=== PATIENT | male | born 2000 | race Caucasian/White ===

== ENCOUNTER 2021-08-26 01:39 | Emergency (ER) | payer OTHER, SELFPAY ==
[2021-08-26] VITALS (11 sets, daily range): BP systolic 147–174; BP diastolic 89–101; PULSE 117–134; RESP 18–22; TEMP 37.2–37.3; O2SAT 95–99; BMI 33.6
--- NOTE | 2021-08-26 02:01 | HMH.EDGENADL ---
ED Disposition Clinical Impression: COVID-19, Hyperglycemia, Elevated blood pressure reading Disposition: Home, Self-Care Condition on Discharge: Fair Instructions: Essential Hypertension, DI for Hyperglycemia -- Adult, DI for COVID-19 (Suspected or Confirmed ) Additional Instructions: You have been evaluated for elevated blood pressure. This is likely due to stress response, COVID-19. Please restart taking lisinopril daily. It is very important that you establish with a new primary care doctor for hypertension and diabetes management. Follow low-salt diet. Avoid sugar and carbohydrates. Exercise daily. Return to the emergency department for any new or worsening symptoms. Prescriptions: Lisinopril/Hydrochlorothiazide [Lisinopril-Hctz 20-12.5 mg Tab*] 1 tab PO DAILY #30 tab Transmission Status: Received by [id number] Referrals: Margarita Guerrero APRN [Primary Care Provider] - Time of Disposition: 02:37 - Critical Care Critical Care Time: No Attestation: On 08/26/21, the high probability of a clinically significant, sudden or life threatening deterioration of the following system(s) required my full and direct attention, intervention and personal management. The time I documented below is in addition to time spent performing reported procedures but includes the following listed in this critical care notation. Medical Decision Making - Medical Records Medical records reviewed: Yes: I reviewed the patient's medical records. - Luke Inquiry Pt receiving controlled substance: No Vital Signs: 08/26/21 01:41 08/26/21 02:35 08/26/21 02:45 Temperature 99.1 F Temperature Source Oral Pulse Rate 132 H 134 H Pulse Rate [Apical] 134 H Respiratory Rate 22 Blood Pressure Blood Pressure [Left Arm] 170/96 H Blood Pressure [Right Arm] 174/101 H Blood Pressure Mean Blood Pressure Mean [Left Arm] 120 Blood Pressure Mean [Right Arm] 125 Blood Pressure Source Blood Pressure Source [Left Arm] Automatic Cuff Blood Pressure Source [Right Arm] Manual Cuff/ Doppler Blood Pressure Position Blood Pressure Position [Left Arm] Sitting Blood Pressure Position [Right Arm] Sitting 02 Sat by Pulse Oximetry 97 95 96 Oxygen Delivery Method Room Air 08/26/21 03:00 08/26/21 03:01 08/26/21 03:15 Temperature Temperature Source Pulse Rate 125 H 127 H 123 H Pulse Rate [Apical] Respiratory Rate 18 Blood Pressure 155/89 H 155/89 H Blood Pressure [Left Arm] Blood Pressure [Right Arm] Blood Pressure Mean 111 Blood Pressure Mean [Left Arm] Blood Pressure Mean [Right Arm] Blood Pressure Source Automatic Cuff Blood Pressure Source [Left Arm] Blood Pressure Source [Right Arm] Blood Pressure Position Supine Blood Pressure Position [Left Arm] Blood Pressure Position [Right Arm] 02 Sat by Pulse Oximetry 96 96 96 Oxygen Delivery Method Room Air 08/26/21 03:30 08/26/21 03:35 08/26/21 03:45 Temperature 98.9 F Temperature Source Oral Pulse Rate 117 H 118 H 124 H Pulse Rate [Apical] Respiratory Rate 20 Blood Pressure 154/94 H 154/94 H Blood Pressure [Left Arm] Blood Pressure [Right Arm] Blood Pressure Mean 114 Blood Pressure Mean [Left Arm] Blood Pressure Mean [Right Arm] Blood Pressure Source Automatic Cuff Blood Pressure Source [Left Arm] Blood Pressure Source [Right Arm] Blood Pressure Position Sitting Blood Pressure Position [Left Arm] Blood Pressure Position [Right Arm] 02 Sat by Pulse Oximetry 97 98 Oxygen Delivery Method Room Air 08/26/21 04:00 08/26/21 04:15 Temperature Temperature Source Pulse Rate 118 H 122 H Pulse Rate [Apical] Respiratory Rate Blood Pressure 147/97 H Blood Pressure [Left Arm] Blood Pressure [Right Arm] Blood Pressure Mean 113 Blood Pressure Mean [Left Arm] Blood Pressure Mean [Right Arm] Blood Pressure Source Blood Pressure Source [Left Arm]
[2021-08-26 02:04] LABS: Basophils # 0.2 K/mm3 (0-0.2); Basophils % 3.7 % (0.1-2.0); Eosinophils % 0.4 % (0.1-12.0); Hematocrit 49.7 % (42.0-52.0); Hemoglobin 16.7 g/dL (14.1-18.0); Influenza A, PCR Not Detected (NotDetected); Influenza B, PCR Not Detected (NotDetected); Lymphocytes # 1.1 K/mm3 (0.7-4.5); Lymphocytes % 24.4 % (10-50); Mean Corpuscular HGB Conc 33.5 g/dL (31.8-35.4); Mean Corpuscular Hemoglobin 29.7 pg (27.0-31.2); Mean Corpuscular Volume 88.8 fl (80-94); Mean Platelet Volume 8.7 fl (7.4-10.4); Monocytes # 0.4 K/mm3 (0.1-1.0); Monocytes % 7.9 % (1.7-9.3); Neutrophils # 2.9 K/mm3 (1.8-7.8); Neutrophils % 63.6 % (37.0-80.0); Platelet Count 244 K/mm3 (142-424); Red Cell Distribution Width 12.9 % (11.5-17.5); White Blood Count 4.6 K/mm3 (4.8-10.8)
[2021-08-26 02:16] LABS: Alanine Aminotransferase 165 U/L (12-78); Albumin Level 4.6 g/dl (3.5-5.0); Albumin/Globulin Ratio 1.2 (1.1-1.8); Aspartate Amino Transferase 109 U/L (17-59); Bilirubin,Total 0.8 mg/dl (0.2-1.3); Blood Urea Nitrogen 10 mg/dl (9-20); Calcium 9.1 mg/dl (8.4-10.2); Carbon Dioxide 23 mmol/L (22.0-30.0); Chloride 97 mmol/L (98-107); Creatinine Clearance Estimated 322 mL/min (50-200); Estimated Glomerular Filt Rate 210 ml/min (>60); GFR (African American) 254 ML/MIN (>60); Globulin 3.8 g/dL (1.3-3.2); Sodium 134 mmol/L (136-145); Total Protein,Serum 8.4 g/dl (6.3-8.2)
[2021-08-26 02:19] LABS: Alkaline Phosphatase 78 U/L (38-126); Glucose 451 mg/dl (74-100)
[2021-08-26 02:26] LABS: Coronavirus 19, PCR Detected (NotDetected)
[2021-08-26 02:29] LABS: Microscopic, Urine URINE MICROSCOPIC (MICROSCOPIC)
[2021-08-26 02:31] LABS: VBG Base Excess -4.8 mmol/L (-2.4-2.3); VBG HCO3 21.1 mmol/L (23-30); VBG Oxygen Saturation 82.8 % (50-70); VBG PCO2 40.6 mmol/L (35-51); VBG PH 7.33 mmol/L (7.31-7.41); VBG PO2 49.1 mmol/L (28-40); VBG Total CO2 22.4 mmol/L (23-27)
[2021-08-26 02:32] LABS: Acetone, Serum (Rapid) None Detected (None Detect)
[2021-08-26 02:32] LABS: Appearance,Urine CLEAR (Clear); Bilirubin,Urine Negative (Negative); Blood, Urine Negative (Negative); Color,Urine YELLOW (Yellow); Glucose,Urine (UA) 3+ (Negative); Ketones,Urine Negative (Negative); Leukocyte Esterase,Urine Negative (Negative); Nitrate,Urine Negative (Negative); Protein,Urine Negative (Negative); Specific Gravity, Urine 1.015 (1.005-1.030); Urobilinogen,Urine 0.2 EU/dl (0.2)
[2021-08-26 02:38] LABS: Squamous Epithelial Cell,Urine Occasional #/hpf (0-5)
== END 2021-08-26 04:40 | disposition home or self-care (01) ==
PROVIDERS: Emergency Provider Emergency Medicine; PCP Nurse Practitioner Family
DX: U07.1 COVID-19 (principal); I10 Essential (primary) hypertension; E11.65 Type 2 diabetes mellitus with hyperglycemia
CPT/HCPCS: 80053; 81001; 82009; 82803; 85025; 96365; 96366; 99283; C9803; U0003; U0005

== ENCOUNTER 2022-01-03 14:45 | Emergency (ER) | payer OTHER, SELFPAY ==
[2022-01-03 15:02] VITALS: BP 195/75; PULSE 96; RESP 20; TEMP 36.7; O2SAT 96; BMI 30.4
--- NOTE | 2022-01-03 15:03 | XR_ITS ---
FINAL REPORT CLINICAL HISTORY: sob, nausea, chest tightness, non smoker FINDINGS: Two views of the chest were obtained. The heart size and pulmonary vascularity are within normal limits. The mediastinum is normal. No acute pulmonary abnormality is identified. There is no pneumothorax. The bony thorax is intact. IMPRESSION: No active cardiopulmonary disease. Reviewed, Interpreted and Dictated by Marcus Perez III, MD Transcribed by Joaquin Lugo Authenticated and [facility]
--- NOTE | 2022-01-03 15:03 | HMH.EDUTC ---
[facility] [place] Clinical Impression: Viral syndrome, Elevated blood pressure reading Disposition: Home, Self-Care Condition on Discharge: Good Instructions: DI for Viral Syndrome, Ondansetron, Preventing the Spread of Coronavirus Discharge Instructions Additional Instructions: Drink plenty of fluids. Take tylenol for pain or fever. Take the medications as directed. Follow up with your regular doctor. GO TO THE ER FOR ANY WORSENING SYMPTOMS Quarantine until you know the results of your covid-19 test. Notify your school or workplace of your results and follow their instructions regarding return to work/school. Prescriptions: Ondansetron [Zofran 4mg ODT] 4 mg PO Q8HP PRN #20 tab PRN Reason: Nausea Transmission Status: Received by [facility] Lisinopril/Hydrochlorothiazide [Lisinopril-Hctz 20-12.5 mg Tab*] 1 tab PO DAILY #30 tab Transmission Status: Received by [facility] Referrals: Roxane Lomas APRN [Primary Care Provider] - Forms: Work/School Release Time of Disposition: 17:10 Medical Decision Making - Medical Records Medical records reviewed: No: I reviewed the patient's medical records. - Luke Inquiry Pt receiving controlled substance: No Vital Signs: 01/03/22 15:02 01/03/22 17:25 Temperature 98.0 F 98.0 F Temperature Source Oral Pulse Rate 85 Pulse Rate [Left Radial] 96 H Respiratory Rate 20 17 Blood Pressure 135/80 Blood Pressure [Right Arm] 195/75 H Blood Pressure Mean [Right Arm] 115 02 Sat by Pulse Oximetry 96 - Lab Data Lab Results 01/03/22 15:03: Chlamy pneumoniae PCR Not detected, Adenovirus (PCR) Not detected, B. pertussis DNA (PCR) Not detected, Coronavirus OC43 (PCR) Not detected, Coronavirus HKU1 (PCR) Not detected, Coronavirus 229E (PCR) Not detected, SARS-CoV-2 (PCR) Not detected, Coronavirus NL63 (PCR) Not detected, Human Metapneumovir PCR Not detected, Influenza A (H1) PCR Not detected, Influ A (H1N1/09) PCR Not detected, Influenza A (H3) PCR Not detected, Influenza Type A (PCR) Not detected, Influenza Type B (PCR) Not detected, M. pneumoniae (PCR) Not detected, Parainfluenza 1 (PCR) Not detected, Parainfluenza 2 (PCR) Not detected, Parainfluenza 3 (PCR) Not detected, Parainfluenza 4 (PCR) Not detected, RSV (PCR) Not detected, Entero/Rhino (PCR) Not detected 01/03/22 15:03: Influenza Type A Ag Negative, Influenza Type B Ag Negative Orders (Tests/Meds): ED MEDICATIONS Discontinued Medications Generic Name Dose Route Start Last Admin Trade Name Freq PRN Reason Stop Dose Admin Sodium Chloride 1,000 mls @ 999 mls/hr 01/03/22 16:00 01/03/22 16:02 Sod Chlor 0.9% 1000ml Bag IV 01/03/22 17:00 999 mls/hr .Q1H1M CARMENZA Administration Ondansetron HCl 4 mg 01/03/22 15:39 01/03/22 16:02 Ondansetron 4mg/2ml Vial IV 01/03/22 15:40 4 mg ONCE ONE Administration Ondansetron HCl 4 mg 01/03/22 16:37 01/03/22 16:41 Ondansetron 4mg/2ml Vial IV 01/03/22 16:38 4 mg ONCE ONE Administration [facility] [place] - General Stated complaint: back pain, vomiting, soa Time Seen by Provider: 01/03/22 15:03 - History of Present Illness Provider Complaint: He states that for the past 3 days he has had a cough, chest congestion, n/v/d, body aches and generally feeling bad. - Related Data Previous Rx's Medication Instructions Recorded Lisinopril/Hydrochlorothiazide 1 tab PO DAILY #30 tab 08/26/21 [Lisinopril-Hctz 20-12.5 mg Tab*] Lisinopril/Hydrochlorothiazide 1 tab PO DAILY #30 tab 01/03/22 [Lisinopril-Hctz 20-12.5 mg Tab*] Ondansetron [Zofran 4mg ODT] 4 mg PO Q8HP PRN #20 tab 01/03/22 Allergies Allergy/AdvReac Type Severity Reaction Status Date / Time No Known Allergies Allergy Verified 01/03/22 15:05 [facility] History - Hepatitis A Screen Attestation statement:: This patient has been screened for Hepatitis A risk factors. I have reviewed the patient's past medica
[2022-01-03 15:31] LABS: Adenovirus,PCR Not Detected (NotDetected); Bordetella Pertussis Not Detected (NotDetected); Chlamydophila Pneumoniae, PCR Not Detected (NotDetected); Coronavirus 19, PCR Not Detected (NotDetected); Coronavirus 229E Not Detected (NotDetected); Coronavirus NL63 Not Detected (NotDetected); Coronavirus OC43 Not Detected (NotDetected); Coronovirus HKU1,PCR Not Detected (NotDetected); Human Metapneumovirus Not Detected (NotDetected); Influenza A, PCR Not Detected (NotDetected); Influenza AH1, 2009 Not Detected (NotDetected); Influenza AH1, PCR Not Detected (NotDetected); Influenza AH3,PCR Not Detected (NotDetected); Influenza B, PCR Not Detected (NotDetected); Mycoplasma Pneumoniae, PCR Not Detected (NotDetected); Parainfluenza 1, PCR Not Detected (NotDetected); Parainfluenza 2, PCR Not Detected (NotDetected); Parainfluenza 3, PCR Not Detected (NotDetected); Parainfluenza 4, PCR Not Detected (NotDetected); Respiratory Syncytial Virus Not Detected (NotDetected); Rhinovirus/Enterovirus Not Detected (NotDetected)
[2022-01-03 15:35] LABS: UTC Influenza A Antigen Negative (Negative); UTC Influenza B Antigen Negative (Negative)
[2022-01-03 17:25] VITALS: BP 135/80; PULSE 85; RESP 17; TEMP 36.7
== END 2022-01-03 17:26 | disposition home or self-care (01) ==
PROVIDERS: Emergency Provider Nurse Practitioner Family; PCP Nurse Practitioner Family
DX: B34.9 Viral infection, unspecified (principal); R11.10 Vomiting, unspecified; R06.02 Shortness of breath; M54.9 Dorsalgia, unspecified; Z20.822 Contact with and (suspected) exposure to COVID-19; Z79.4 Long term (current) use of insulin
CPT/HCPCS: 71046; 87581; 87632; 87798; 87804; C9803; J2405; U0003; U0005

== ENCOUNTER 2022-01-04 16:07 | Inpatient (IN) | payer OTHER, SELFPAY ==
[2022-01-04] VITALS (15 sets, daily range): BP systolic 170–202; BP diastolic 98–122; PULSE 127–147; RESP 16–44; TEMP 36.2–37.2; O2SAT 99–100; BMI 28.8
--- NOTE | 2022-01-04 16:08 | ECG_ITS ---
APPROVED REPORT Exam: Resting ECG HR:143 bpm ECG Measurements Heart Rate 143 AXES WY 150 P 62 QRSd 94 QRS 48 QT 265 T -64 QTc 348 Conclusion SINUS TACHYCARDIA, NONSPECIFIC T-WAVE ABNORMALITY ABNORMAL ECG UNCONFIRMED REPORT Electronically signed by : Rico Soto MD 01/05/2022 18:42:36
--- NOTE | 2022-01-04 16:27 | HMH.EDGENADL ---
ED Disposition Clinical Impression: Diabetic ketoacidosis Qualifiers: Diabetes mellitus type: other specified (including RASHEED) Diabetes mellitus complication detail: without coma Qualified Code(s): E13.10 - Other specified diabetes mellitus with ketoacidosis without coma Disposition: Admitted As Inpatient Condition on Discharge: Undetermined Referrals: Roxane Lomas APRN [Primary Care Provider] - - Critical Care Critical Care Time: Yes Attestation: On 01/04/22, the high probability of a clinically significant, sudden or life threatening deterioration of the following system(s) required my full and direct attention, intervention and personal management. The time I documented below is in addition to time spent performing reported procedures but includes the following listed in this critical care notation. Total Critical Care Time: 30 Vital system(s) involved:: Metabolic Failure My critical care processes included: Assessment & monitoring of V/S, Initial and Re-exams, Data Review/Interpretation, Coordinating Care, Medication Orders and management, Documentation Medical Decision Making - Medical Records Medical records reviewed: Yes: I reviewed the patient's medical records. - Luke Inquiry Pt receiving controlled substance: No Vital Signs: 01/04/22 16:10 01/04/22 16:30 01/04/22 17:00 Temperature 97.2 F L Temperature Source Rectal Pulse Rate 140 H 134 H Pulse Rate [Brachial] 142 H Respiratory Rate 44 H 40 H 36 H Blood Pressure 202/113 H 194/104 H Blood Pressure [Right Arm] 193/122 H Blood Pressure Mean 139 129 Blood Pressure Mean [Right Arm] 145 Blood Pressure Source [Right Arm] Automatic Cuff Blood Pressure Position [Right Arm] Sitting 02 Sat by Pulse Oximetry 100 99 100 Oxygen Delivery Method Room Air 01/04/22 17:30 01/04/22 18:00 Temperature Temperature Source Pulse Rate 140 H 143 H Pulse Rate [Brachial] Respiratory Rate 33 H 41 H Blood Pressure 199/109 H 202/115 H Blood Pressure [Right Arm] Blood Pressure Mean 131 144 Blood Pressure Mean [Right Arm] Blood Pressure Source [Right Arm] Blood Pressure Position [Right Arm] 02 Sat by Pulse Oximetry 100 100 Oxygen Delivery Method - Lab Data Lab results reviewed: Yes: I reviewed the patient's lab results. Lab Results 01/04/22 16:23: WBC 17.2 H, RBC 5.73, Hgb 17.8, Hct 52.4 H, MCV 91.5, MCH 31.0, MCHC 33.9, RDW 13.4, Plt Count 432 H, MPV 8.9, Neut % (Auto) 83.7 H, Lymph % (Auto) 8.4 L, Becker % (Auto) 7.1, Eos % (Auto) 0.0 L, Baso % (Auto) 0.7, Neut # (Auto) 14.4 H, Lymph # (Auto) 1.5, Becker # (Auto) 1.2 H, Eos # (Auto) 0.0, Baso # (Auto) 0.1, Total Counted 100, Neutrophils % (Manual) 85 H, Band Neutrophils % 5.0, Lymphocytes % (Manual) 8 L, Monocytes % (Manual) 2, Platelet Estimate Normal, RBC Morphology Normal 01/04/22 16:23: Sodium 126 L, Potassium 4.9, Chloride 96 L, Carbon Dioxide < 5 L*, Anion Gap 29.9 H, BUN 25 H, Creatinine 1.30 H, Estimated GFR 70, Est GFR ( Amer) 84, Glucose 583 H*, Calcium 9.5, Magnesium 3.0 H, Total Bilirubin 1.1, AST 41, ALT 48, Alkaline Phosphatase 126, Troponin I < 0.01, C-Reactive Protein 101.7 H, Total Protein 9.3 H, Albumin 4.5, Globulin 4.8 H, Albumin/Globulin Ratio 0.9 L 01/04/22 16:23: Acetone Level Large 01/04/22 16:28: VBG pH 6.93 L, VBG pCO2 21.5 L, VBG pO2 68.3 H, VBG HCO3 4.5 L, VBG Total CO2 5.1 L, VBG O2 Saturation 89.8 H, VBG Base Excess -27.9 L 01/04/22 16:32: SARS-CoV-2 (PCR) Not detected, Influenza A Untype (PCR) Not detected, Influenza Type B (PCR) Not detected 01/04/22 16:38: Urine Color Yellow, Urine Appearance Cloudy, Urine pH 5.5, Ur Specific [place] 1.025, Urine Protein 2+, Urine Glucose (UA) 2+, Urine Ketones 3+, Urine Blood 3+, Urine Nitrate Negative, Urine Bilirubin 1+ A, Urine Urobilinogen 0.2, Ur Leukocyte Esterase Negative, Urine RBC Tntc, Urine WBC Occasional, Ur Squamous Epith Cells None, Urine Bacteria Trace 01/04/22 17:09: POC Glucose 565 H* Result diagrams:
[2022-01-04 16:39] LABS: Chloride 96 mmol/L (98-107)
[2022-01-04 16:40] LABS: Potassium 4.9 mmoL/L (3.5-5.1); Sodium 126 mmol/L (136-145)
[2022-01-04 16:41] LABS: Basophils # 0.1 K/mm3 (0-0.2); Basophils % 0.7 % (0.1-2.0); Hematocrit 52.4 % (42.0-52.0); Hemoglobin 17.8 g/dL (14.1-18.0); Lymphocytes # 1.5 K/mm3 (0.7-4.5); Lymphocytes % 8.4 % (10-50); Mean Corpuscular HGB Conc 33.9 g/dL (31.8-35.4); Mean Corpuscular Volume 91.5 fl (80-94); Mean Platelet Volume 8.9 fl (7.4-10.4); Monocytes # 1.2 K/mm3 (0.1-1.0); Monocytes % 7.1 % (1.7-9.3); Neutrophils # 14.4 K/mm3 (1.8-7.8); Neutrophils % 83.7 % (37.0-80.0); Platelet Count 432 K/mm3 (142-424); Red Blood Count 5.73 M/mm3 (4.60-6.20); Red Cell Distribution Width 13.4 % (11.5-17.5); White Blood Count 17.2 K/mm3 (4.8-10.8)
[2022-01-04 16:42] LABS: Alanine Aminotransferase 48 U/L (12-78); Aspartate Amino Transferase 41 U/L (17-59); Blood Urea Nitrogen 25 mg/dl (9-20); Estimated Glomerular Filt Rate 70 ml/min (>60); GFR (African American) 84 ML/MIN (>60)
[2022-01-04 16:43] LABS: Albumin Level 4.5 g/dl (3.5-5.0); Albumin/Globulin Ratio 0.9 (1.1-1.8); Alkaline Phosphatase 126 U/L (38-126); Bilirubin,Total 1.1 mg/dl (0.2-1.3); Calcium 9.5 mg/dl (8.4-10.2); Globulin 4.8 g/dL (1.3-3.2); MANUAL DIFFERENTIAL MANUAL DIFFERENTIAL (MANUAL DIFF); Total Protein,Serum 9.3 g/dl (6.3-8.2)
[2022-01-04 16:43] LABS: Microscopic, Urine URINE MICROSCOPIC (MICROSCOPIC)
[2022-01-04 16:48] LABS: Appearance,Urine CLOUDY (Clear); Blood, Urine 3+ (Negative); Color,Urine YELLOW (Yellow); Glucose,Urine (UA) 2+ (Negative); Ketones,Urine 3+ (Negative); Leukocyte Esterase,Urine Negative (Negative); Nitrate,Urine Negative (Negative); PH,Urine 5.5 (5.0-8.5); Protein,Urine 2+ (Negative); Specific Gravity, Urine 1.025 (1.005-1.030); Urobilinogen,Urine 0.2 EU/dl (0.2)
[2022-01-04 16:48] LABS: C-Reactive Protein 101.7 mg/L (0-4)
[2022-01-04 16:49] LABS: Acetone, Serum (Rapid) Large (None Detect)
[2022-01-04 16:56] LABS: Anion Gap 29.9 mEq/L (5-15)
[2022-01-04 16:57] LABS: Carbon Dioxide < 5 mmol/L (22.0-30.0); Glucose 583 mg/dl (74-100)
[2022-01-04 16:58] LABS: Troponin I < 0.01 ng/ml (0.00-0.034)
[2022-01-04 17:00] LABS: Bilirubin,Urine 1+ (Negative)
[2022-01-04 17:02] LABS: Bacteria,Urine Trace /lpf; RBC,Urine TNTC #/hpf (0-3); WBC,Urine Occasional #/hpf (0-3)
[2022-01-04 17:12] LABS: Coronavirus 19, PCR Not Detected (NotDetected); Influenza A, PCR Not Detected (NotDetected); Influenza B, PCR Not Detected (NotDetected)
--- NOTE | 2022-01-04 17:12 | PC.NURSE ---
FSBS 56MD Howard NOTIFIED
[2022-01-04 17:17] LABS: POC Glucose,Bedside 565 (70-110)
[2022-01-04 17:19] LABS: VBG Base Excess -27.9 mmol/L (-2.4-2.3); VBG HCO3 4.5 mmol/L (23-30); VBG Oxygen Saturation 89.8 % (50-70); VBG PO2 68.3 mmol/L (28-40); VBG Total CO2 5.1 mmol/L (23-27)
[2022-01-04 17:20] LABS: VBG PH 6.93 mmol/L (7.31-7.41)
[2022-01-04 17:21] LABS: VBG PCO2 21.5 mmol/L (35-51)
--- NOTE | 2022-01-04 17:22 | PC.NURSE ---
Addendum entered by Tamia Johnson CNA 01/04/22 17:24: RN aware and aware Original Note: Will from Respiratory called for values. pH 6.934 CO2 21.5
--- NOTE | 2022-01-04 17:25 | PC.NURSE ---
MULTIPLE ATTEMPTS TO COLLECT BLOOD, UNSUCCESSFUL
--- NOTE | 2022-01-04 17:26 | PC.NURSE ---
VISITOR AT BEDSIDE
--- NOTE | 2022-01-04 17:55 | PC.NURSE ---
has been paged
--- NOTE | 2022-01-04 17:57 | PC.NURSE ---
on the phone with
[2022-01-04 17:59] LABS: Lymphocytes % 8 % (10-50); Monocytes % 2 % (2-9); Neutrophils % 85 % (42-76); Total Cells Counted 100
[2022-01-04 18:00] LABS: Platelet Estimate Normal; RBC Morphology Normal
--- NOTE | 2022-01-04 18:05 | CT_ITS ---
PROCEDURE INFORMATION: Exam: CT Abdomen And Pelvis Without Contrast Exam date and time: 01/04/2022 7:55 PM Age: 21 years old Clinical indication: Abdominal pain; Generalized; Patient HX: Nausea, vomiting, hematuria, SOA TECHNIQUE: Imaging protocol: Computed tomography of the abdomen and pelvis without contrast. Radiation optimization: All CT scans at this facility use at least one of these dose optimization techniques: automated exposure control; mA and/or kV adjustment per patient size (includes targeted exams where dose is matched to clinical indication); or iterative reconstruction. Other contrast: Oral, Gastrographin , 30; COMPARISON: CR XR CHEST 2V 01/03/2022 3:01 PM FINDINGS: Mediastinal space: Contrast within the lower esophagus. Liver: Diffuse low attenuation of the liver most likely secondary to fatty infiltration. Gallbladder and bile ducts: High-density material within the gallbladder. Pancreas: Potential mild stranding around the pancreatic tail which is not well evaluated. Spleen: Parenchymal enhancement is not evaluated without contrast. No splenomegaly. Adrenal glands: No mass. Kidneys and ureters: Parenchymal enhancement is not evaluated without contrast. No hydronephrosis. Stomach and bowel: No obstruction. No mucosal thickening. Appendix: No evidence of appendicitis. Intraperitoneal space: No free air. No significant fluid collection. Vasculature: Limited evaluation without contrast. No abdominal aortic aneurysm. Lymph nodes: No enlarged lymph nodes. Urinary bladder: Diamond catheter within the urinary bladder which is decompressed with and not well evaluated. Reproductive: No acute abnormality. Bones/joints: No acute fracture. Soft tissues: Limited evaluation without contrast. No significant soft tissue swelling. IMPRESSION: 1. Diffuse low attenuation of the liver most likely secondary to fatty infiltration. 2. High-density material within the gallbladder which can be seen with vicarious excretion, sludge, or and/or stones. 3. Contrast within the lower esophagus suggesting gastroesophageal reflux. 4. Potential mild stranding around the pancreatic tail which is not well evaluated. Correlation with lipase is recommended.
--- NOTE | 2022-01-04 18:43 | PC.NURSE ---
Radiology has been notified that patient has drank his contrast
--- NOTE | 2022-01-04 18:43 | PC.NURSE ---
ORAL CONTRAST COMPLETED, RADIOLOGY NOTIFIED
--- NOTE | 2022-01-04 18:49 | PC.NURSE ---
[employer]PER[employer]OR NOTIFIED OF ADMISSION
--- NOTE | 2022-01-04 18:56 | PC.NURSE ---
UNABLE TO OBTAIN MED LIST
[2022-01-04 19:14] LABS: Lactic Acid 0.7 mmol/L (0.7-2.1)
--- NOTE | 2022-01-04 19:20 | PC.NURSE ---
REPORT GIVEN TO Lyric CANALES RN
[2022-01-04 19:43] LABS: Amphetamine/Metha Screen,Urine Negative ng/ml (<1000); Barbiturates Screen,Urine Negative ng/ml (<200)
[2022-01-04 19:44] LABS: Benzodiazepines Screen,Urine Negative ng/ml (<200)
[2022-01-04 19:45] LABS: Cannabinoid Screen,Urine Negative ng/ml (<50); Cocaine Screen,Urine Negative ng/ml (<300)
[2022-01-04 19:46] LABS: Methadone Screen,Urine Negative ng/ml (<300)
[2022-01-04 19:47] LABS: Opiate Screen,Urine Negative ng/ml (<300); Phencyclidine Screen,Urine Negative ng/ml (<25)
[2022-01-04 19:51] LABS: Chloride 111 mmol/L (98-107); Sodium 132 mmol/L (136-145)
[2022-01-04 19:54] LABS: Blood Urea Nitrogen 21 mg/dl (9-20); Creatinine Clearance Estimated 178 mL/min (50-200); Estimated Glomerular Filt Rate 122 ml/min (>60); GFR (African American) 148 ML/MIN (>60)
[2022-01-04 19:56] LABS: Calcium 8.2 mg/dl (8.4-10.2); Carbon Dioxide < 5 mmol/L (22.0-30.0); Glucose 390 mg/dl (74-100)
--- NOTE | 2022-01-04 19:57 | PC.NURSE ---
Dr. Gant notified of critical CO<5.
--- NOTE | 2022-01-04 20:06 | PC.NURSE ---
PT ARRIVED TO FLOOR VIA STRETCHER FROM ED W/STAFF @ 2006
[2022-01-04 20:18] LABS: Troponin I < 0.01 ng/ml (0.00-0.034)
--- NOTE | 2022-01-04 20:32 | PC.NURSE ---
admitted pt to [address] scan pt's fsbs 349, per ordered insulin drip protocol increased insulin drip to 12units/hr pt with tachycardia and hypertension, notifying
--- NOTE | 2022-01-04 21:01 | PC.NURSE ---
spoke with MD Charles garcia about pt's HR, hypertension, and lethargy; stated would take a while for pt to rouse due to dehydration and DKA, MD ordered 2 1000mL NS boluses wide open and after those are complete put IVF to 150mL/hr, MD ordered lisinopril 10mg daily first dose now, will continue to monitor
--- NOTE | 2022-01-04 22:09 | PC.NURSE ---
notified MD Soto of pt's continued hypertension after po lisinopril, ordered 10mg po amlodipine once
--- NOTE | 2022-01-04 23:25 | PC.NURSE ---
fsbs 177, decreased insulin drip to 8units/hr
[2022-01-05] VITALS (23 sets, daily range): BP systolic 101–194; BP diastolic 63–104; PULSE 117–140; RESP 18–43; TEMP 36.2–37.2; O2SAT 100
[2022-01-05 01:15] LABS: Blood Urea Nitrogen 19 mg/dl (9-20); Calcium 8.8 mg/dl (8.4-10.2); Chloride 119 mmol/L (98-107); Creatinine Clearance Estimated 178 mL/min (50-200); Estimated Glomerular Filt Rate 122 ml/min (>60); GFR (African American) 148 ML/MIN (>60); Potassium 4.9 mmoL/L (3.5-5.1); Sodium 138 mmol/L (136-145)
[2022-01-05 01:20] LABS: Acetone, Serum (Rapid) Moderate (None Detect); Anion Gap 18.9 mEq/L (5-15); Carbon Dioxide < 5 mmol/L (22.0-30.0); Glucose 167 mg/dl (74-100)
--- NOTE | 2022-01-05 01:27 | PC.NURSE ---
notified MD Soto of pt's hypertension, ordered one time dose of nifedipine 30mg PO; notified MD Soto of pt's critical lab result of CO2 less than 5, no new orders at this time
--- NOTE | 2022-01-05 01:58 | PC.NURSE ---
fsbs 168, continuing insulin drip at rate of 8units/hr lab results back, gap not closed at this time (Na 138-Cl 119-CO2 5=14), moderate acetone detected
--- NOTE | 2022-01-05 05:08 | PC.NURSE ---
pt has had restless shift, pt with nausea/dry heaving occasionally zofran given once this shift, very thirsty and likes to sit up on side of bed frequently; pt oriented to self and significant other in room, however pt is more alert than at start of shift; pt with tachycardia 120's-130's after 2 boluses, pt also is hypertensive, pt had 3 different ordered blood pressure medications this shift to get blood pressure down below 190's; pt's uop more than adequate and is becoming more yellow this morning as was red upon start of shift; pt on insulin drip for dka at 8units/hr, last fsbs 155; will continue to monitor
--- NOTE | 2022-01-05 05:44 | PC.NURSE ---
fsbs 121, decreased insulin drip to 2units/hr, starting D5NS at 75 per dka protocol, will await am labs and results to check K+, gap, and acetone
[2022-01-05 06:38] LABS: Chloride 114 mmol/L (98-107); Sodium 132 mmol/L (136-145)
[2022-01-05 06:39] LABS: Acetone, Serum (Rapid) Moderate (None Detect)
[2022-01-05 06:41] LABS: Blood Urea Nitrogen 22 mg/dl (9-20); Creatinine Clearance Estimated 119 mL/min (50-200); Estimated Glomerular Filt Rate 76 ml/min (>60); GFR (African American) 92 ML/MIN (>60)
[2022-01-05 06:42] LABS: Calcium 9.1 mg/dl (8.4-10.2); Glucose 146 mg/dl (74-100)
[2022-01-05 06:45] LABS: Carbon Dioxide 6 mmol/L (22.0-30.0)
--- NOTE | 2022-01-05 06:51 | PC.NURSE ---
per am labs, pt's gap is closed (132-114-6=12), but moderate acetone still detected
[2022-01-05 07:48] LABS: POC Glucose,Bedside 265 (70-110)
[2022-01-05 07:48] LABS: POC Glucose,Bedside 155 (70-110)
[2022-01-05 07:48] LABS: POC Glucose,Bedside 177 (70-110)
[2022-01-05 07:48] LABS: POC Glucose,Bedside 168 (70-110)
[2022-01-05 07:48] LABS: POC Glucose,Bedside 121 (70-110)
[2022-01-05 07:48] LABS: POC Glucose,Bedside 349 (70-110)
[2022-01-05 08:27] LABS: Amylase 624 U/L (30-110)
[2022-01-05 08:41] LABS: Basophils # 0.1 K/mm3 (0-0.2); Basophils % 0.3 % (0.1-2.0); Hematocrit 43.8 % (42.0-52.0); Lymphocytes # 1.1 K/mm3 (0.7-4.5); Lymphocytes % 5.6 % (10-50); Mean Corpuscular HGB Conc 33.6 g/dL (31.8-35.4); Mean Corpuscular Hemoglobin 30.4 pg (27.0-31.2); Mean Corpuscular Volume 90.4 fl (80-94); Monocytes # 1.5 K/mm3 (0.1-1.0); Neutrophils # 16.4 K/mm3 (1.8-7.8); Neutrophils % 86.1 % (37.0-80.0); Platelet Count 302 K/mm3 (142-424); Red Blood Count 4.85 M/mm3 (4.60-6.20); Red Cell Distribution Width 13.8 % (11.5-17.5)
[2022-01-05 08:45] LABS: Lipase 4437 U/L (23-300)
[2022-01-05 08:48] LABS: MANUAL DIFFERENTIAL MANUAL DIFFERENTIAL (MANUAL DIFF)
--- NOTE | 2022-01-05 08:54 | HMH.HP ---
*Admission Date: 01/04/22 *Chief complaint: Status changes and shortness of air *History of present illness: 21-year-old white male who moved into [facility] 1 year ago to live with his girlfriend and her family, who has a history of diabetes that was diagnosed when he was 16 years old. He has seen, many years ago, [facility] endocrinology per his report, but perhaps only a couple of times. He has also not been back to physicians quite a while and apparently has never been placed on insulin even though he was diagnosed with type 1 diabetes. He has a prescription bottle of metformin that was prescribed in 2019, which he has been taking intermittently. His girlfriend and her father-who are not the most precise historians and-reports that he has been feeling badly for about 4 to 5 weeks, and has had some shortness of air and has been breathing fast but he has been able to maintain his normal activities until about 4 days ago but when he became very confused and was unable to even walk around her home without being dizzy and sitting down. He became essentially unresponsive yesterday was brought to the ER. He was found to be in severe acidosis. Glucose over 500, large acetones with evidence of DKA as above. Found to have hematuria, no other source of infection was noted. Admitted to the stepdown unit after he was given fluids and insulin in the emergency department. [facility] History I have reviewed the patient's past medical history: Yes Medical History: Reports:: Diabetes Mellitus Type 1 *Have you ever received a pneumonia vaccine?: No *Have you received a flu vaccine this season?: Yes (fall 2020) - *Social History Smoking Status: Never smoker Alcohol Intake: never *Occupational Status:: unemployed *Travel in the last 8 weeks: None Family Hx:: Unable to obtain Review of Systems - Review of Systems Review of systems:: unable to obtain Meds Home Medications Medication Instructions Recorded Confirmed Type No Known Home Medications 01/05/22 01/05/22 History Allergies Allergy/AdvReac Type Severity Reaction Status Date / Time No Known Allergies Allergy Verified 01/03/22 15:05 Exam Vital signs and Labs for Last 24 Hours: Temp Pulse Resp BP Pulse Ox 97.8 F 128 H 34 H 101/77 L 100 01/05/22 08:00 01/05/22 08:00 01/05/22 08:00 01/05/22 08:00 01/05/22 08:00 Laboratory Results - last 24 hr 01/04/22 16:23: WBC 17.2 H, RBC 5.73, Hgb 17.8, Hct 52.4 H, MCV 91.5, MCH 31.0, MCHC 33.9, RDW 13.4, Plt Count 432 H, MPV 8.9, Neut % (Auto) 83.7 H, Lymph % (Auto) 8.4 L, Thomas % (Auto) 7.1, Eos % (Auto) 0.0 L, Baso % (Auto) 0.7, Neut # (Auto) 14.4 H, Lymph # (Auto) 1.5, Thomas # (Auto) 1.2 H, Eos # (Auto) 0.0, Baso # (Auto) 0.1, Total Counted 100, Neutrophils % (Manual) 85 H, Band Neutrophils % 5.0, Lymphocytes % (Manual) 8 L, Monocytes % (Manual) 2, Platelet Estimate Normal, RBC Morphology Normal 01/04/22 16:23: Sodium 126 L, Potassium 4.9, Chloride 96 L, Carbon Dioxide < 5 L*, Anion Gap 29.9 H, BUN 25 H, Creatinine 1.30 H, Estimated GFR 70, Est GFR ( Amer) 84, Glucose 583 H*, Calcium 9.5, Magnesium 3.0 H, Total Bilirubin 1.1, AST 41, ALT 48, Alkaline Phosphatase 126, Troponin I < 0.01, C-Reactive Protein 101.7 H, Total Protein 9.3 H, Albumin 4.5, Globulin 4.8 H, Albumin/Globulin Ratio 0.9 L 01/04/22 16:23: Acetone Level Large 01/04/22 16:28: VBG pH 6.93 L, VBG pCO2 21.5 L, VBG pO2 68.3 H, VBG HCO3 4.5 L, VBG Total CO2 5.1 L, VBG O2 Saturation 89.8 H, VBG Base Excess -27.9 L 01/04/22 16:32: SARS-CoV-2 (PCR) Not detected, Influenza A Untype (PCR) Not detected, Influenza Type B (PCR) Not detected 01/04/22 16:38: Urine Color Yellow, Urine Appearance Cloudy, Urine pH 5.5, Ur Specific [place] 1.025, Urine Protein 2+, Urine Glucose (UA) 2+, Urine Ketones 3+, Urine Blood 3+, Urine Nitrate Negative, Urine Bilirubin 1+ A, Urine Urobilinogen 0.2, Ur Leukocyte Esterase Negative, Urine RBC Tntc, Urine WBC Occasional, Ur Sq
[2022-01-05 09:11] LABS: ABG HCO3 5.3 mmhg (22.0-26.0); ABG Oxygen Saturation 98 % (90-100); ABG PO2 109.2 mmhg (80-100); ABG TCO2 5.8 mmhg (23-27)
[2022-01-05 09:13] LABS: Allen's Test ACCEPTABLE; Oxygen ROOM AIR %; Source L RADIAL
[2022-01-05 09:14] LABS: ABG PH 7.12 mmol/L (7.35-7.45)
[2022-01-05 09:15] LABS: ABG PCO2 16.6 mmhg (35.0-45.0)
--- NOTE | 2022-01-05 09:15 | PC.NURSE ---
notified Dr. Soto of the following: pH 7.12 and pCO2 16.6. No new orders received at this time
--- NOTE | 2022-01-05 09:29 | HMH.PHAVTE ---
[facility] Pharmacy VTE Monitoring - Patient Demographics Admission date: 01/05/22 Report Date: 01/05/22 Time: 09:29 Allergies/Adverse Reactions: Patient Allergies No Known Allergies Allergy (Verified 01/03/22 15:05) Height: 1.73 m Weight: 86.183 kg Patient Problems: Current Active Problems Elevated blood pressure reading (Acute) Diabetic ketoacidosis (Acute) Acute inflammation of the pancreas (Acute) Type 1 diabetes (Acute) Hematuria (Acute) Hypertension (Acute) - VTE Risk Labs: VTE Related Lab Results Hgb 17.8 g/dL (14.1-18.0) 01/04/22 16:23 Hct 43.8 % (42.0-52.0) 01/05/22 07:52 Plt Count 302 K/mm3 (142-424) D 01/05/22 07:52 BUN 22 mg/dl (9-20) H 01/05/22 06:10 Creatinine 1.20 mg/dl (0.66-1.25) D 01/05/22 06:10 Estimated Creat Clear 119 mL/min (50-200) 01/05/22 06:10 Clinical Trial Participant: No - Prophylaxis VTE Prophylaxis Ordered?: Yes Types of VTE Prophylaxis: TEDS Knee High
[2022-01-05 11:28] LABS: Lymphocytes % 9 % (10-50); Monocytes % 3 % (2-9); Neutrophils % 86 % (42-76); Platelet Estimate Normal; RBC Morphology Normal; Total Cells Counted 100
[2022-01-05 11:48] LABS: Hemoglobin 14.6 g/dL (14.1-18.0)
[2022-01-05 12:46] LABS: Blood Urea Nitrogen 22 mg/dl (9-20); Calcium 8.4 mg/dl (8.4-10.2); Chloride 113 mmol/L (98-107); Creatinine Clearance Estimated 129 mL/min (50-200); Estimated Glomerular Filt Rate 85 ml/min (>60); GFR (African American) 102 ML/MIN (>60); Glucose 199 mg/dl (74-100); Potassium 3.1 mmoL/L (3.5-5.1); Sodium 133 mmol/L (136-145)
[2022-01-05 12:54] LABS: Anion Gap 18.1 mEq/L (5-15)
[2022-01-05 12:57] LABS: Carbon Dioxide < 5 mmol/L (22.0-30.0)
--- NOTE | 2022-01-05 13:15 | PC.NURSE ---
Dr. Soto notified of CO2<5
[2022-01-05 17:05] LABS: Chloride 124 mmol/L (98-107); Sodium 136 mmol/L (136-145)
[2022-01-05 17:08] LABS: Blood Urea Nitrogen 19 mg/dl (9-20); Calcium 7.4 mg/dl (8.4-10.2); Creatinine Clearance Estimated 158 mL/min (50-200); Estimated Glomerular Filt Rate 107 ml/min (>60); GFR (African American) 129 ML/MIN (>60); Glucose 112 mg/dl (74-100)
[2022-01-05 17:21] LABS: Acetone, Serum (Rapid) Large (None Detect)
[2022-01-05 17:23] LABS: Anion Gap 14.7 mEq/L (5-15)
--- NOTE | 2022-01-05 17:25 | PC.NURSE ---
received call from lab reporting CO2<5. Name and verified. Dr. Soto rounding and is aware.
[2022-01-05 17:26] LABS: Carbon Dioxide < 5 mmol/L (22.0-30.0)
[2022-01-05 17:55] LABS: Potassium 4.4 mmoL/L (3.5-5.1)
[2022-01-05 18:40] LABS: POC Glucose,Bedside 150 (70-110)
[2022-01-05 18:40] LABS: POC Glucose,Bedside 133 (70-110)
[2022-01-05 18:40] LABS: POC Glucose,Bedside 220 (70-110)
[2022-01-05 18:40] LABS: POC Glucose,Bedside 231 (70-110)
[2022-01-05 18:40] LABS: POC Glucose,Bedside 123 (70-110)
[2022-01-05 18:40] LABS: POC Glucose,Bedside 125 (70-110)
--- NOTE | 2022-01-05 19:50 | PC.NURSE ---
pt c/o heartburn and indigestion, notified MD Charles garcia MD ordered 20mg pepcid IV q12
--- NOTE | 2022-01-05 20:44 | PC.NURSE ---
pt's fsbs 110, decreased insulin drip to 3units/hr per dka protocol, will recheck another fsbs at 2200
[2022-01-05 23:14] LABS: POC Glucose,Bedside 126 (70-110)
[2022-01-05 23:14] LABS: POC Glucose,Bedside 110 (70-110)
[2022-01-06] VITALS (13 sets, daily range): BP systolic 155–191; BP diastolic 90–113; PULSE 100–130; RESP 18–26; TEMP 36.6–37.6; O2SAT 99–100; BMI 29.0
[2022-01-06 00:46] LABS: POC Glucose,Bedside 137 (70-110)
[2022-01-06 01:18] LABS: Blood Urea Nitrogen 20 mg/dl (9-20); Calcium 8.9 mg/dl (8.4-10.2); Chloride 118 mmol/L (98-107); Creatinine Clearance Estimated 129 mL/min (50-200); Estimated Glomerular Filt Rate 85 ml/min (>60); GFR (African American) 102 ML/MIN (>60); Glucose 150 mg/dl (74-100); Sodium 137 mmol/L (136-145)
[2022-01-06 01:21] LABS: Carbon Dioxide 5 mmol/L (22.0-30.0)
[2022-01-06 06:27] LABS: POC Glucose,Bedside 137 (70-110)
[2022-01-06 06:27] LABS: POC Glucose,Bedside 143 (70-110)
[2022-01-06 06:27] LABS: POC Glucose,Bedside 143 (70-110)
--- NOTE | 2022-01-06 06:47 | PC.NURSE ---
pt rested well overnight, pt had 2 liquid stools this shift, pt had bed bath this shift, pt continues on insulin drip at 3units/hr, pt more alert this shift, but still mildly confused and lethargic, pt tachy low 100's-one teens, bp on higher end but less than previous shift, pt remains on room air with unlabored breathing, more than adequate uop still blood-tinged, significant other at bedside, will continue to monitor
[2022-01-06 07:11] LABS: Basophils % 0.3 % (0.1-2.0); Eosinophils % 0.1 % (0.1-12.0); Hematocrit 41.8 % (42.0-52.0); Hemoglobin 14.5 g/dL (14.1-18.0); Lymphocytes # 0.8 K/mm3 (0.7-4.5); Lymphocytes % 9.3 % (10-50); Mean Corpuscular HGB Conc 34.6 g/dL (31.8-35.4); Mean Corpuscular Volume 86.8 fl (80-94); Mean Platelet Volume 8.7 fl (7.4-10.4); Monocytes # 0.7 K/mm3 (0.1-1.0); Monocytes % 7.9 % (1.7-9.3); Neutrophils # 7.4 K/mm3 (1.8-7.8); Neutrophils % 82.5 % (37.0-80.0); Platelet Count 288 K/mm3 (142-424); Red Blood Count 4.82 M/mm3 (4.60-6.20); Red Cell Distribution Width 13.8 % (11.5-17.5); White Blood Count 8.9 K/mm3 (4.8-10.8)
[2022-01-06 07:21] LABS: Acetone, Serum (Rapid) Small (None Detect); Chloride 116 mmol/L (98-107)
[2022-01-06 07:22] LABS: Sodium 138 mmol/L (136-145)
[2022-01-06 07:24] LABS: Alanine Aminotransferase 73 U/L (12-78); Alkaline Phosphatase 77 U/L (38-126); Aspartate Amino Transferase 85 U/L (17-59); Bilirubin,Total 0.8 mg/dl (0.2-1.3); Blood Urea Nitrogen 19 mg/dl (9-20); Creatinine Clearance Estimated 129 mL/min (50-200); Estimated Glomerular Filt Rate 85 ml/min (>60); GFR (African American) 102 ML/MIN (>60)
[2022-01-06 07:25] LABS: Albumin Level 3.5 g/dl (3.5-5.0); Calcium 9.4 mg/dl (8.4-10.2); Globulin 3.4 g/dL (1.3-3.2); Glucose 143 mg/dl (74-100); Total Protein,Serum 6.9 g/dl (6.3-8.2)
[2022-01-06 07:36] LABS: Carbon Dioxide 9 mmol/L (22.0-30.0)
[2022-01-06 09:00] LABS: POC Glucose,Bedside 155 (70-110)
--- NOTE | 2022-01-06 10:10 | HMH.ACPN2 ---
Internal Medicine - PN: Subj *Date: 01/06/22 *Time: 10:10 Interval history: Patient is more alert today, states that he feels better, would like to try some clear liquids. His girlfriend and her father also reportedly been much more responsive and is oriented. He denies belly pain or nausea. Exam Vital signs and Labs for Last 24 Hours: Temp Pulse Resp BP Pulse Ox 98.3 F 121 H 26 H 167/100 H 100 01/06/22 08:00 01/06/22 08:00 01/06/22 06:00 01/06/22 06:00 01/06/22 08:00 Laboratory Results - last 24 hr 01/05/22 07:52: Hgb 14.6 D, Total Counted 100, Neutrophils % (Manual) 86 H, Band Neutrophils % 2.0, Lymphocytes % (Manual) 9 L, Monocytes % (Manual) 3, Platelet Estimate Normal, RBC Morphology Normal 01/05/22 09:51: POC Glucose 231 H 01/05/22 11:02: POC Glucose 220 H 01/05/22 12:16: Sodium 133 L, Potassium 3.1 L D, Chloride 113 H, Carbon Dioxide < 5 L* D, Anion Gap 18.1 H, BUN 22 H, Creatinine 1.10, Estimated Creat Clear 129, Estimated GFR 85, Est GFR ( Amer) 102, Glucose 199 H D, Calcium 8.4 01/05/22 14:02: POC Glucose 150 H 01/05/22 15:08: POC Glucose 133 H 01/05/22 16:10: Sodium 136, Potassium , Chloride 124 H, Carbon Dioxide < 5 L*, Anion Gap 14.7, BUN 19, Creatinine 0.90, Estimated Creat Clear 158, Estimated GFR 107, Est GFR ( Amer) 129 D, Glucose 112 H D, Calcium 7.4 L, Acetone Level Large 01/05/22 17:22: POC Glucose 123 H 01/05/22 17:30: Potassium 4.4 D 01/05/22 18:29: POC Glucose 125 H 01/05/22 20:23: POC Glucose 110 01/05/22 21:49: POC Glucose 126 H 01/06/22 00:40: POC Glucose 137 H 01/06/22 00:55: Sodium 137, Potassium 4.0, Chloride 118 H, Carbon Dioxide 5 L*, Anion Gap 18.0 H, BUN 20, Creatinine 1.10 D, Estimated Creat Clear 129, Estimated GFR 85, Est GFR ( Amer) 102 D, Glucose 150 H D, Calcium 8.9 01/06/22 02:22: POC Glucose 143 H 01/06/22 04:30: POC Glucose 137 H 01/06/22 06:12: POC Glucose 143 H 01/06/22 06:20: WBC 8.9 D, RBC 4.82, Hgb 14.5, Hct 41.8 L, MCV 86.8, MCH 30.0, MCHC 34.6, RDW 13.8, Plt Count 288, MPV 8.7, Neut % (Auto) 82.5 H, Lymph % (Auto) 9.3 L, [place] % (Auto) 7.9, Eos % (Auto) 0.1, Baso % (Auto) 0.3, Neut # (Auto) 7.4, Lymph # (Auto) 0.8, [place] # (Auto) 0.7, Eos # (Auto) 0.0, Baso # (Auto) 0.0 01/06/22 06:20: Sodium 138, Potassium 3.0 L D, Chloride 116 H, Carbon Dioxide 9 L* D, Anion Gap 16.0 H, BUN 19, Creatinine 1.10, Estimated Creat Clear 129, Estimated GFR 85, Est GFR ( Amer) 102, Glucose 143 H, Calcium 9.4, Total Bilirubin 0.8, AST 85 H D, ALT 73 D, Alkaline Phosphatase 77, Total Protein 6.9 D, Albumin 3.5, Globulin 3.4 H, Albumin/Globulin Ratio 1.0 L 01/06/22 06:20: Acetone Level Small 01/06/22 08:44: POC Glucose 155 H I & O for Last 24 hours: Intake & Output 01/03/22 01/04/22 01/05/22 01/06/22 11:59 11:59 11:59 11:59 Intake Total 6601 / 6601 1461 / 1461 Output Total 3300 / 3300 9300 / 9300 Balance 3301 / 3301 -7839 / -7839 Weight 190 lb 0.016 oz 191 lb 9 oz Microbiology Reports for the Last 24 Hours: Microbiology 01/04/22 16:38 Urine,Catheterized Urine Culture - Preliminary NO GROWTH AFTER 24 HOURS Narrative: Remains tachycardic. Blood pressure has elevated this morning into the 180 range. Remains slightly tachypneic but improving. Labs reviewed. Lungs are clear, heart rate tachycardic but regular. Abdomen is soft and nontender. Hematuria clearing from his Diamond catheter. No extremity clubbing or cyanosis. Neurologically improving as above. Assessment and Plan (1) Acute inflammation of the pancreas Status: Acute Category: Medical Code(s): K85.90 - Acute pancreatitis without necrosis or infection, unspecified (2) Type 1 diabetes Status: Acute Category: Medical Code(s): E10.9 - Type 1 diabetes mellitus without complications (3) Diabetic ketoacidosis Status: Acute Qualifiers: Diabetes mellitus type: other specified (including RASHEED) Diabetes mellitus complicati
[2022-01-06 10:56] LABS: POC Glucose,Bedside 181 (70-110)
[2022-01-06 11:14] LABS: C-Peptide 0.9 ng/mL (1.1-4.4)
[2022-01-06 12:45] LABS: POC Glucose,Bedside 286 (70-110)
[2022-01-06 14:47] LABS: POC Glucose,Bedside 263 (70-110)
--- NOTE | 2022-01-06 14:49 | PC.NURSE ---
Addendum entered by Margarita Menendez RN 01/06/22 15:28: [address] Soto. Labetalol 100mg po x 1 dose for blood pressure. infuse 2 1000ml lr bolus to help with DKA Original Note: Notified Dr Soto that pt BP is 182/94, and pt is tachycardic in the 120-130's. notified at 1445. nno at this time.
[2022-01-06 17:43] LABS: POC Glucose,Bedside 214 (70-110)
--- NOTE | 2022-01-06 18:26 | PC.NURSE ---
iv intake from multiple shifts
--- NOTE | 2022-01-06 18:55 | PC.NURSE ---
at start of shift insulin drip was at 3 units/hr. increased to 5 units per protocol at 1235 increased to 6 units 1440 increased to 7 units at 1700
[2022-01-06 19:03] LABS: POC Glucose,Bedside 162 (70-110)
[2022-01-06 22:42] LABS: POC Glucose,Bedside 213 (70-110)
[2022-01-06 22:42] LABS: POC Glucose,Bedside 132 (70-110)
[2022-01-06 23:42] LABS: POC Glucose,Bedside 214 (70-110)
[2022-01-07] VITALS (12 sets, daily range): BP systolic 139–185; BP diastolic 79–100; PULSE 85–105; RESP 15–24; TEMP 36.4–37.3; O2SAT 98–100; BMI 29.0
[2022-01-07 00:32] LABS: POC Glucose,Bedside 233 (70-110)
[2022-01-07 01:59] LABS: POC Glucose,Bedside 222 (70-110)
[2022-01-07 04:06] LABS: POC Glucose,Bedside 207 (70-110)
--- NOTE | 2022-01-07 04:27 | PC.NURSE ---
Pt is A&O x4. Has c/o weakness this shift. He remains on Insulin gtt. Currently at 4 units/hr. BP has been elevated this shift. HR is tachycardic at times. Pt has been incontinent of bowel and bladder this shift. Medications administered per sep. consulted this shift. Pt has had family or significant other at bedside. Education provided on safety. Will continue to monitor.
--- NOTE | 2022-01-07 05:59 | PC.NURSE ---
notified of HTN. New orders received. Give clonidine 0.1 mg PO x1.
[2022-01-07 06:29] LABS: POC Glucose,Bedside 187 (70-110)
[2022-01-07 07:30] LABS: Basophils # 0.1 K/mm3 (0-0.2); Basophils % 0.5 % (0.1-2.0); Hematocrit 40.1 % (42.0-52.0); Hemoglobin 13.7 g/dL (14.1-18.0); Lymphocytes # 0.9 K/mm3 (0.7-4.5); Lymphocytes % 10.3 % (10-50); Mean Corpuscular HGB Conc 34.1 g/dL (31.8-35.4); Mean Corpuscular Hemoglobin 29.5 pg (27.0-31.2); Mean Corpuscular Volume 86.3 fl (80-94); Mean Platelet Volume 8.5 fl (7.4-10.4); Monocytes # 0.8 K/mm3 (0.1-1.0); Monocytes % 8.3 % (1.7-9.3); Neutrophils # 7.4 K/mm3 (1.8-7.8); Neutrophils % 80.8 % (37.0-80.0); Platelet Count 268 K/mm3 (142-424); Red Blood Count 4.65 M/mm3 (4.60-6.20); Red Cell Distribution Width 13.7 % (11.5-17.5); White Blood Count 9.2 K/mm3 (4.8-10.8)
[2022-01-07 07:31] LABS: Chloride 117 mmol/L (98-107); Sodium 139 mmol/L (136-145)
[2022-01-07 07:33] LABS: Alanine Aminotransferase 68 U/L (12-78); Aspartate Amino Transferase 46 U/L (17-59); Blood Urea Nitrogen 21 mg/dl (9-20); Creatinine Clearance Estimated 119 mL/min (50-200); Estimated Glomerular Filt Rate 76 ml/min (>60); GFR (African American) 92 ML/MIN (>60)
[2022-01-07 07:34] LABS: Albumin Level 3.1 g/dl (3.5-5.0); Alkaline Phosphatase 65 U/L (38-126); Anion Gap 9.4 mEq/L (5-15); Calcium 9.5 mg/dl (8.4-10.2); Carbon Dioxide 14 mmol/L (22.0-30.0); Globulin 3.2 g/dL (1.3-3.2); Glucose 225 mg/dl (74-100); Total Protein,Serum 6.3 g/dl (6.3-8.2)
--- NOTE | 2022-01-07 07:43 | HMH.ACPN2 ---
Internal Medicine - PN: Subj *Date: 01/07/22 *Time: 18:32 Interval history: Patient feeling better this morning on rounds. Gap is closed. Bicarb improving but still low. Stable on room air. Was able to eat some breakfast, improved appetite. Alert and oriented on exam. Afebrile. Exam Vital signs and Labs for Last 24 Hours: Temp Pulse Resp BP Pulse Ox 99.1 F 101 H 16 170/98 H 100 01/07/22 04:00 01/07/22 07:00 01/07/22 07:00 01/07/22 07:00 01/07/22 07:00 Laboratory Results - last 24 hr 01/05/22 10:05: C-Peptide 0.9 L 01/06/22 08:44: POC Glucose 155 H 01/06/22 10:48: POC Glucose 181 H 01/06/22 12:35: POC Glucose 286 H 01/06/22 14:40: POC Glucose 263 H 01/06/22 17:00: POC Glucose 214 H 01/06/22 18:46: POC Glucose 162 H 01/06/22 20:26: POC Glucose 132 H 01/06/22 22:30: POC Glucose 213 H 01/06/22 23:22: POC Glucose 214 H 01/07/22 00:10: POC Glucose 233 H 01/07/22 01:52: POC Glucose 222 H 01/07/22 03:59: POC Glucose 207 H 01/07/22 06:15: POC Glucose 187 H 01/07/22 07:12: WBC 9.2, RBC 4.65, Hgb 13.7 L, Hct 40.1 L, MCV 86.3, MCH 29.5, MCHC 34.1, RDW 13.7, Plt Count 268, MPV 8.5, Neut % (Auto) 80.8 H, Lymph % (Auto) 10.3, [place] % (Auto) 8.3, Eos % (Auto) 0.0 L, Baso % (Auto) 0.5, Neut # (Auto) 7.4, Lymph # (Auto) 0.9, [place] # (Auto) 0.8, Eos # (Auto) 0.0, Baso # (Auto) 0.1 I & O for Last 24 hours: Intake & Output 06/18/01/05/22 01/06/22 01/07/22 23:59 23:59 23:59 23:59 Intake Total 2360 / 2360 5702 / 5702 6468 / 6468 2181 / 2181 Output Total 1400 / 1400 6200 / 6200 6500 / 6500 1000 / 1000 Balance 960 / 960 -498 / -498 -32 / -32 1181 / 1181 Weight 86.183 kg 86.89 kg 86.727 kg Microbiology Reports for the Last 24 Hours: Microbiology 01/04/22 18:50 Blood - Catheterized Blood Culture - Preliminary NO GROWTH AFTER 48 HOURS 01/04/22 18:50 Blood - Catheterized Blood Culture - Preliminary NO GROWTH AFTER 48 HOURS 01/04/22 16:38 Urine,Catheterized Urine Culture - Final NO GROWTH AFTER 48 HOURS - Constitutional mild distress - *Routine HEENT Exam Head: Present: normocephalic Eye: Present: EOMI, PERRL ENT: Present: mucous membranes moist - *Routine Neck Exam Present: supple. Absent: lymphadenopathy - *Routine Respiratory Exam Present: CTA bilaterally - *Routine Cardiovascular Exam Present: tachycardia. Absent: murmur - *Routine Abdominal Exam Present: soft, normoactive bowel sounds, tenderness (interval improvement) - *Routine Extremities Exam Absent: cyanosis, clubbing, edema - *Routine Skin Exam Present: warm. Absent: rash - *Routine Neurological Exam Present: alert, oriented X3 Assessment and Plan (1) Acute inflammation of the pancreas Status: Acute Category: Medical Code(s): K85.90 - Acute pancreatitis without necrosis or infection, unspecified (2) Type 1 diabetes Status: Acute Category: Medical Code(s): E10.9 - Type 1 diabetes mellitus without complications (3) Diabetic ketoacidosis Status: Acute Qualifiers: Diabetes mellitus type: other specified (including RASHEED) Diabetes mellitus complication detail: without coma Qualified Code(s): E13.10 - Other specified diabetes mellitus with ketoacidosis without coma Category: Medical Code(s): E11.10 - Type 2 diabetes mellitus with ketoacidosis without coma (4) Elevated blood pressure reading Status: Acute Category: Medical Code(s): R03.0 - Elevated blood-pressure reading, without diagnosis of hypertension (5) Hematuria Status: Acute Category: Medical Code(s): R31.9 - Hematuria, unspecified (6) Hypertension Status: Acute Category: Medical Code(s): I10 - Essential (primary) hypertension - Assessment and plan all Dx Assessment and Plan for all problems:: 21-year-old male with history of diabetes, appears to have progressed to insulin-dependent diabetes. Presented with suspect
[2022-01-07 07:47] LABS: Magnesium 2.1 mg/dl (1.6-2.3)
[2022-01-07 07:50] LABS: Acetone, Serum (Rapid) Small (None Detect); Potassium 1.4 mmoL/L (3.5-5.1)
--- NOTE | 2022-01-07 07:55 | PC.NURSE ---
received call from lab reporting K 1.4. Name and verified. Dr. Kimble made aware. STAT K ordered.
[2022-01-07 08:34] LABS: Potassium 1.5 mmoL/L (3.5-5.1)
--- NOTE | 2022-01-07 08:51 | PC.NURSE ---
lab called and reported critical potassium on patient. this was relayed immediately after to md on rounds
--- NOTE | 2022-01-07 11:22 | HMH.ACPN2 ---
Internal Medicine - PN: Subj *Date: 01/07/22 *Time: 11:22 Exam Vital signs and Labs for Last 24 Hours: Temp Pulse Resp BP Pulse Ox 97.6 F 85 16 170/98 H 100 01/07/22 08:18 01/07/22 08:00 01/07/22 07:00 01/07/22 07:00 01/07/22 07:00 Laboratory Results - last 24 hr 01/06/22 12:35: POC Glucose 286 H 01/06/22 14:40: POC Glucose 263 H 01/06/22 17:00: POC Glucose 214 H 01/06/22 18:46: POC Glucose 162 H 01/06/22 20:26: POC Glucose 132 H 01/06/22 22:30: POC Glucose 213 H 01/06/22 23:22: POC Glucose 214 H 01/07/22 00:10: POC Glucose 233 H 01/07/22 01:52: POC Glucose 222 H 01/07/22 03:59: POC Glucose 207 H 01/07/22 06:15: POC Glucose 187 H 01/07/22 07:12: WBC 9.2, RBC 4.65, Hgb 13.7 L, Hct 40.1 L, MCV 86.3, MCH 29.5, MCHC 34.1, RDW 13.7, Plt Count 268, MPV 8.5, Neut % (Auto) 80.8 H, Lymph % (Auto) 10.3, [place] % (Auto) 8.3, Eos % (Auto) 0.0 L, Baso % (Auto) 0.5, Neut # (Auto) 7.4, Lymph # (Auto) 0.9, [place] # (Auto) 0.8, Eos # (Auto) 0.0, Baso # (Auto) 0.1 01/07/22 07:12: Sodium 139, Potassium 1.4 L* D, Chloride 117 H, Carbon Dioxide 14 L, Anion Gap 9.4, BUN 21 H, Creatinine 1.20, Estimated Creat Clear 119, Estimated GFR 76, Est GFR ( Amer) 92, Glucose 225 H, Calcium 9.5, Total Bilirubin 1.0, AST 46 D, ALT 68, Alkaline Phosphatase 65, Total Protein 6.3, Albumin 3.1 L D, Globulin 3.2, Albumin/Globulin Ratio 1.0 L 06/21/22 07:12: Magnesium 2.1 D 01/07/22 07:12: Acetone Level Small 01/07/22 08:03: Potassium 1.5 L* I & O for Last 24 hours: Intake & Output 01/04/22 01/05/22 01/06/22 01/07/22 23:59 23:59 23:59 23:59 Intake Total 2360 / 2360 5702 / 5702 6468 / 6468 2541 / 2541 Output Total 1400 / 1400 6200 / 6200 6500 / 6500 1800 / 1800 Balance 960 / 960 -498 / -498 -32 / -32 741 / 741 Weight 86.183 kg 86.89 kg 86.727 kg Microbiology Reports for the Last 24 Hours: Microbiology 01/04/22 18:50 Blood - Catheterized Blood Culture - Preliminary NO GROWTH AFTER 48 HOURS 01/04/22 18:50 Blood - Catheterized Blood Culture - Preliminary NO GROWTH AFTER 48 HOURS 01/04/22 16:38 Urine,Catheterized Urine Culture - Final NO GROWTH AFTER 48 HOURS Assessment and Plan (1) Acute inflammation of the pancreas Status: Acute Category: Medical Code(s): K85.90 - Acute pancreatitis without necrosis or infection, unspecified (2) Type 1 diabetes Status: Acute Category: Medical Code(s): E10.9 - Type 1 diabetes mellitus without complications (3) Diabetic ketoacidosis Status: Acute Qualifiers: Diabetes mellitus type: other specified (including RASHEED) Diabetes mellitus complication detail: without coma Qualified Code(s): E13.10 - Other specified diabetes mellitus with ketoacidosis without coma Category: Medical Code(s): E11.10 - Type 2 diabetes mellitus with ketoacidosis without coma (4) Elevated blood pressure reading Status: Acute Category: Medical Code(s): R03.0 - Elevated blood-pressure reading, without diagnosis of hypertension (5) Hematuria Status: Acute Category: Medical Code(s): R31.9 - Hematuria, unspecified (6) Hypertension Status: Acute Category: Medical Code(s): I10 - Essential (primary) hypertension The patient's infection will respond to the chosen ABx?: Yes Is the patient receiving the right drug, dose, and route?: Yes Could a more targeted ABx be ordered?: No
--- NOTE | 2022-01-07 14:32 | PC.NURSE ---
Pt out of stepdown at this time
[2022-01-07 17:32] LABS: Antipancreatic islet cell antb Negative (Neg:<1:1)
--- NOTE | 2022-01-07 18:08 | PC.WOUNDNOTE ---
shift summary: Pt has done well today. GCS 15. Ambulates to bathroom with standby assist. No n/v. Continues to have multiple loose stools. Uses urinal. Tolerates a clear liquid diet. NSR on tele. Blood pressure improved with added medications from PCP. O2 sat high 90s on RA. No dyspnea. Insulin gtt discontinued this morning and pt transitioned to subq insulin. Hypokalemia this morning. 4 rounds of IV K 20mEq given in addition to po K. Repeat BMP has not resulted yet. NS+40K infusing @ 150mL/hr.
[2022-01-07 18:10] LABS: POC Glucose,Bedside 197 (70-110)
[2022-01-07 18:10] LABS: POC Glucose,Bedside 268 (70-110)
[2022-01-07 18:10] LABS: POC Glucose,Bedside 167 (70-110)
[2022-01-07 18:53] LABS: Chloride 114 mmol/L (98-107)
[2022-01-07 18:54] LABS: Potassium 4.1 mmoL/L (3.5-5.1); Sodium 139 mmol/L (136-145)
[2022-01-07 18:56] LABS: Blood Urea Nitrogen 20 mg/dl (9-20); Creatinine Clearance Estimated 130 mL/min (50-200); Estimated Glomerular Filt Rate 85 ml/min (>60); GFR (African American) 102 ML/MIN (>60)
[2022-01-07 18:57] LABS: Anion Gap 12.1 mEq/L (5-15); Calcium 9.4 mg/dl (8.4-10.2); Carbon Dioxide 17 mmol/L (22.0-30.0); Glucose 309 mg/dl (74-100)
--- NOTE | 2022-01-07 21:31 | CA_ITS ---
APPROVED REPORT EXAM: Comprehensive 2D, Doppler, and color-flow Echocardiogram Junior Project Coordinator: 77 Ht: 5 ft 8 in Wt: 191lbs BSA: 2.00 BP: 101/77 mmHg Indications: Diabetes, Hypertension/HDD 2D Dimensions LVOT 2.07 cm (M/F) 1.5-2.5 LA Volume 24.80 mL LA Volume Index 12.40 mL/m2 (M/F) 16-34 M-Mode Dimensions RVDd 2.41 cm (0.9-2.6) LA Diam 3.23 cm (1.9-4.0) LVDd 4.64 cm (3.5-5.7) Ao Diam 3.37 cm (2.0-3.7) LVDs 2.99 cm (3.5-5.7) IVSd 1.65 cm (0.6-1.1) PWd 0.61 cm (0.6-1.1) EF (Teich) 65.10% FS 35.60% EDV (Teich) 99.30 mL ESV (Teich) 34.70 mL LV Diastology E Decel Time 207.00 (160-240 msec) E/A Ratio 0.93 MED E' 5.90 (< 7 cm/sec) MED A' 6.20 cm/s E'/MED E' Ratio 16.75 (>14) LAT A' 7.70 cm/s Aortic Valve LVOT Max 177.00 (70-110 cm/s) LVOT VTI 25.51 cm AoV Peak Joao. 317.00 (50-130 cm/s) AO Peak GR. 45.40 mmHg AO Mean GR. 16.40 (<5 mmHg) AO VTI 35.17 (18-25 cm) ELLIE (VTI) 2.44 (2.5-4.5 cm2) Mitral Valve MV E Max Joao. 99.00 (40-130 cm/s) MV A Velocity 107.00 (40-130 cm/s) E/A Ratio 0.93 MV Decel. Time 207.00 (160-240 ms) MV PHT 61.00 ms Pulmonary Valve PV Peak Velocity 142.00 (50-150 cm/s) Tricuspid Valve TR P. Velocity 201.00 cm/s RAP Estimate 10.00 mmHg RVSP 26.20 mmHg Left Ventricle Left atrium is mildly enlarged, left ventricle is normal size, there is mild qualitative concentric left ventricular hypertrophy, hyperdynamic left ventricular systolic function, estimated ejection fraction over 65%, there appears to be systolic anterior motion of the mitral valve leaflet, increased velocities seen in the left ventricular outflow tract suggestive of dynamic obstruction. Right Ventricle Right atrium and right ventricle are normal size and contractility. Aortic Valve Aortic valve is grossly normal. There is no aortic stenosis or aortic insufficiency. Mitral Valve Mitral valve leaflets are grossly normal, there is appears to be systolic anterior motion of the mitral valve leaflet, there is no mitral stenosis. There is trace mitral regurgitation. Tricuspid Valve Tricuspid valve is grossly normal. There is trace tricuspid regurgitation. Pulmonic Valve Pulmonic valve is poorly visualized, there is increased velocities across the pulmonic valve likely secondary to increased cardiac output state. Great Vessels Aortic root is normal size. Inferior vena cava is poorly visualized. Pericardium No significant pericardial effusion noted. Conclusion 1. Technically difficult study, mildly dilated, normal left ventricular size mild concentric left ventricular hypertrophy, hyperdynamic left ventricular systolic function, estimated ejection fraction was 65% with no regional wall motion abnormality, there appears to be systolic anterior motion of the mitral valve leaflet creating a dynamic obstruction in the left ventricular outflow tract, peak instantaneous gradient is approximately 82 mmHg. Doppler evidence of impaired LV relaxation seen. Doppler evidence of high output state is also seen. 2. Trace mitral and tricuspid regurgitation. 3. No significant pericardial effusion. 4. Inferior vena cava is poorly visualized. Electronically signed by : Madi Franco MD 01/07/2022 19:58:26
[2022-01-08] VITALS: BP 143/88; PULSE 87; PULSE 90; RESP 16; TEMP 36.8; O2SAT 98
[2022-01-08 01:09] LABS: POC Glucose,Bedside 269 (70-110)
[2022-01-08 04:00] VITALS: BP 150/93; PULSE 80; PULSE 97; RESP 18; TEMP 36.8; O2SAT 99
--- NOTE | 2022-01-08 04:01 | PC.NURSE ---
Pt is a&ox4, guest in room all night, pt took shower with assistance. Pt is room air with O2 sat 98%. HR 87-95. SBP 143-153. Pt has not complained of pain this shift, pt has slept since shower. Pt uses urinal. Call light in reach and working.
[2022-01-08 04:48] VITALS: BMI 28.4
[2022-01-08 05:39] LABS: POC Glucose,Bedside 233 (70-110)
[2022-01-08 06:19] LABS: Basophils # 0.1 K/mm3 (0-0.2); Basophils % 0.6 % (0.1-2.0); Eosinophils # 0.1 K/mm3 (0.0-0.4); Eosinophils % 0.6 % (0.1-12.0); Hematocrit 37.1 % (42.0-52.0); Hemoglobin 12.8 g/dL (14.1-18.0); Lymphocytes # 1.5 K/mm3 (0.7-4.5); Lymphocytes % 19.2 % (10-50); Mean Corpuscular HGB Conc 34.4 g/dL (31.8-35.4); Mean Corpuscular Hemoglobin 29.6 pg (27.0-31.2); Mean Corpuscular Volume 86.1 fl (80-94); Mean Platelet Volume 9.9 fl (7.4-10.4); Monocytes # 0.9 K/mm3 (0.1-1.0); Neutrophils # 5.4 K/mm3 (1.8-7.8); Neutrophils % 68.6 % (37.0-80.0); Platelet Count 258 K/mm3 (142-424); Red Cell Distribution Width 13.9 % (11.5-17.5); White Blood Count 7.8 K/mm3 (4.8-10.8)
[2022-01-08 06:28] LABS: Acetone, Serum (Rapid) Small (None Detect)
[2022-01-08 06:29] LABS: Chloride 112 mmol/L (98-107); Potassium 4.1 mmoL/L (3.5-5.1); Sodium 138 mmol/L (136-145)
[2022-01-08 06:31] LABS: Alanine Aminotransferase 50 U/L (12-78); Aspartate Amino Transferase 34 U/L (17-59); Blood Urea Nitrogen 19 mg/dl (9-20); Creatinine Clearance Estimated 156 mL/min (50-200); Estimated Glomerular Filt Rate 107 ml/min (>60); GFR (African American) 129 ML/MIN (>60)
[2022-01-08 06:32] LABS: Albumin Level 3.2 g/dl (3.5-5.0); Albumin/Globulin Ratio 1.1 (1.1-1.8); Alkaline Phosphatase 57 U/L (38-126); Anion Gap 13.1 mEq/L (5-15); Bilirubin,Total 0.9 mg/dl (0.2-1.3); Carbon Dioxide 17 mmol/L (22.0-30.0); Globulin 2.8 g/dL (1.3-3.2); Glucose 254 mg/dl (74-100); Magnesium 2.2 mg/dl (1.6-2.3)
--- NOTE | 2022-01-08 07:45 | PC.NURSE ---
patient is due for iv change, however has hopes for discharge today. will wait and see if that is the plan and if not will attempt new iv at that time.
[2022-01-08 08:00] VITALS: BP 147/80; PULSE 110; PULSE 81; RESP 15; TEMP 36.9; O2SAT 94
[2022-01-08 12:00] VITALS: BP 148/97; PULSE 80; RESP 15; TEMP 36.6; O2SAT 100
--- NOTE | 2022-01-08 12:22 | DIET.NUTRFU ---
RD provided and reviewed multiple handouts for diabetes. Reviewed routine meals, carb counting and glycemic index also covered sick days and fast food. Provided contact info
--- NOTE | 2022-01-08 13:55 | HMH.PTEV ---
Physical Therapy Evaluation Rehab PT IP Evaluation Start: 01/08/22 12:44 Freq: .once Status: Active Protocol: Document 01/08/22 13:52 SALINA (Rec: 01/08/22 13:54 SALINA [email or web address]) Subjective/History History History This is the initial IP PT evaluation for Silvino Antonio. Pt is a 21 y/o male admitted to [facility] for DKA. Pt came into ED w/ family w/ AMS and severe weakness. Blood glucose was +500 Subjective Subjective Pt reports no complaints - states he is willing to participate w/ therapy Rehab PT IP Eval Objective Appearance Patient Behavior Cooperative Patient Orientation Place,Name,Birthday,Year Difficulty following instructions none Speech Pattern Clear,Appropriate Ambulation Patient Able to Ambulate Yes Ambulation Observation IP General Gait Pattern Observation No Deviations/Normal Ambulation Distance (feet) 35 Ambulation Assistive Device None Ambulation Ability Supervision/Stand by Balance Ability to Arise Able, w/o using arms Sitting Balance Steady, safe Standing Balance Narrow stance w/o support Dynamic Sitting Balance Ability Normal Dynamic Standing Balance Ability Normal Transfers Bed Transfer Ability Independent Sit to Stand Bed Transfer Ability Independent ROM All Extremities PT ROM Status WFL MMT All Extremities PT MMT WFL Rehab PT IP prob,goals,plan Problems Date of Evaluation: 01/08/22 Rehab Potential Rehab Potential Innapropriate for Skilled Therapy Discharge Plan PT Discharge Plan Pt is independent w/ mobility and transfers - no skilled therapy needs - safe to return home once medically stable G -code Required No Eval Complexity Eval Charge Codes 16765 - Low Complexity PHYSICIAN CERTIFICATION: I certify the specified therapy services for Silvino Antonio are required, authorized, and reviewed every 30 days.
--- NOTE | 2022-01-08 14:59 | PC.NURSE ---
Attempted to place a new IV, pt was stuck x2 without success and pt does not want to be stuck again.
[2022-01-08 16:00] VITALS: BP 158/109; PULSE 80; PULSE 82; RESP 15; TEMP 36.8; O2SAT 98
--- NOTE | 2022-01-08 17:53 | PC.NURSE ---
pt. A&OX4. pt. is on room air. pt. is ambulating to and from bathroom independently. pt. was educated about the administration of insulin, verbalized understanding, returned demonstration. visitor at bedside, call light in reach, bed in low position and wheels locked.
--- NOTE | 2022-01-08 18:32 | HMH.ACPN2 ---
Internal Medicine - PN: Subj *Date: 01/08/22 *Time: 08:30 Interval history: Hemodynamically stable. States he feels much better this morning. Interestingly has been incontinent of stool per nursing. No fever. Tolerating liquid diet. Patient comfortable advancing today. Continues to require inpatient management for continued insulin advancement and education. Received long-acting insulin last night with morning glucose in the high 100s. Exam Vital signs and Labs for Last 24 Hours: Temp Pulse Resp BP Pulse Ox 98.2 F 82 15 158/109 H 98 01/08/22 16:00 01/08/22 16:00 01/08/22 16:00 01/08/22 16:00 01/08/22 16:00 Laboratory Results - last 24 hr 01/07/22 18:28: Sodium 139, Potassium 4.1 D, Chloride 114 H, Carbon Dioxide 17 L, Anion Gap 12.1, BUN 20, Creatinine 1.10, Estimated Creat Clear 130, Estimated GFR 85, Est GFR ( Amer) 102, Glucose 309 H D, Calcium 9.4 01/07/22 20:57: POC Glucose 269 H 01/08/22 05:06: POC Glucose 233 H 01/08/22 05:50: Acetone Level Small 01/08/22 05:50: WBC 7.8, RBC 4.30 L, Hgb 12.8 L, Hct 37.1 L, MCV 86.1, MCH 29.6, MCHC 34.4, RDW 13.9, Plt Count 258, MPV 9.9, Neut % (Auto) 68.6, Lymph % (Auto) 19.2, [place] % (Auto) 11.0 H, Eos % (Auto) 0.6, Baso % (Auto) 0.6, Neut # (Auto) 5.4, Lymph # (Auto) 1.5, [place] # (Auto) 0.9, Eos # (Auto) 0.1, Baso # (Auto) 0.1 01/08/22 05:50: Sodium 138, Potassium 4.1, Chloride 112 H, Carbon Dioxide 17 L, Anion Gap 13.1, BUN 19, Creatinine 0.90, Estimated Creat Clear 156, Estimated GFR 107, Est GFR ( Amer) 129 D, Glucose 254 H, Calcium 9.0, Magnesium 2.2, Total Bilirubin 0.9, AST 34 D, ALT 50 D, Alkaline Phosphatase 57, Total Protein 6.0 L, Albumin 3.2 L, Globulin 2.8, Albumin/Globulin Ratio 1.1 I & O for Last 24 hours: Intake & Output 01/05/22 01/06/22 01/07/22 01/08/22 23:59 23:59 23:59 23:59 Intake Total 5702 / 5702 6468 / 6468 5015 / 5015 3967 / 3967 Output Total 6200 / 6200 6500 / 6500 5175 / 5175 1150 / 1150 Balance -498 / -498 -32 / -32 -160 / -160 2817 / 2817 Weight 86.89 kg 86.727 kg 85.139 kg Narrative: - Constitutional NAD on RA - *Routine HEENT Exam Head: Present: normocephalic Eye: Present: EOMI, PERRL ENT: Present: mucous membranes moist - *Routine Neck Exam Present: supple. Absent: lymphadenopathy - *Routine Respiratory Exam Present: CTA bilaterally - *Routine Cardiovascular Exam Present: tachycardia. Absent: murmur - *Routine Abdominal Exam Present: soft, normoactive bowel sounds, Non tender - *Routine Extremities Exam Absent: cyanosis, clubbing, edema - *Routine Skin Exam Present: warm. Absent: rash - *Routine Neurological Exam Present: alert, oriented X3 Assessment and Plan (1) Acute inflammation of the pancreas Status: Acute Category: Medical Code(s): K85.90 - Acute pancreatitis without necrosis or infection, unspecified (2) Type 1 diabetes Status: Acute Category: Medical Code(s): E10.9 - Type 1 diabetes mellitus without complications (3) Diabetic ketoacidosis Status: Acute Qualifiers: Diabetes mellitus type: other specified (including RASHEED) Diabetes mellitus complication detail: without coma Qualified Code(s): E13.10 - Other specified diabetes mellitus with ketoacidosis without coma Category: Medical Code(s): E11.10 - Type 2 diabetes mellitus with ketoacidosis without coma (4) Elevated blood pressure reading Status: Acute Category: Medical Code(s): R03.0 - Elevated blood-pressure reading, without diagnosis of hypertension (5) Hematuria Status: Acute Category: Medical Code(s): R31.9 - Hematuria, unspecified (6) Hypertension Status: Acute Category: Medical Code(s): I10 - Essential (primary) hypertension (7) Left ventricular hypertrophy Status: Acute Category: Medical Code(s): I51.7 - Cardiomegaly - Assessment and plan all Dx Assessment and Plan for all problems:: 21-year-old male with history of diabetes, appears to have pr
[2022-01-08 18:54] LABS: POC Glucose,Bedside 300 (70-110)
[2022-01-08 18:54] LABS: POC Glucose,Bedside 222 (70-110)
[2022-01-08 20:00] VITALS: BP 157/100; PULSE 75; PULSE 77; RESP 20; TEMP 36.8; O2SAT 99
[2022-01-08 20:46] LABS: POC Glucose,Bedside 203 (70-110)
[2022-01-09] VITALS: BP 150/89; PULSE 70; PULSE 75; RESP 22; TEMP 36.7; O2SAT 99
[2022-01-09 04:00] VITALS: BP 145/101; PULSE 80; RESP 20; TEMP 36.8; O2SAT 99
[2022-01-09 05:00] VITALS: BMI 31.3
--- NOTE | 2022-01-09 06:13 | PC.NURSE ---
pt slept well, pt is not able to tolerate the liquid potassium, pt was educated on insulin dosage and administration, pt administered his own insulin shot at 2100, VSS, no changes from previous assessment, no issues or complaints noted.
[2022-01-09 06:23] LABS: Basophils # 0.3 K/mm3 (0-0.2); Eosinophils # 0.2 K/mm3 (0.0-0.4); Eosinophils % 1.7 % (0.1-12.0); Hematocrit 42.2 % (42.0-52.0); Lymphocytes % 21.4 % (10-50); Mean Corpuscular HGB Conc 33.3 g/dL (31.8-35.4); Mean Corpuscular Hemoglobin 29.3 pg (27.0-31.2); Mean Platelet Volume 8.8 fl (7.4-10.4); Monocytes # 0.6 K/mm3 (0.1-1.0); Neutrophils # 6.1 K/mm3 (1.8-7.8); Neutrophils % 66.9 % (37.0-80.0); Platelet Count 282 K/mm3 (142-424); Red Blood Count 4.79 M/mm3 (4.60-6.20); Red Cell Distribution Width 13.7 % (11.5-17.5); White Blood Count 9.2 K/mm3 (4.8-10.8)
[2022-01-09 06:26] LABS: Chloride 106 mmol/L (98-107); Sodium 139 mmol/L (136-145)
[2022-01-09 06:28] LABS: Alanine Aminotransferase 69 U/L (12-78); Aspartate Amino Transferase 62 U/L (17-59); Blood Urea Nitrogen 14 mg/dl (9-20); Creatinine Clearance Estimated 172 mL/min (50-200); Estimated Glomerular Filt Rate 107 ml/min (>60); GFR (African American) 129 ML/MIN (>60)
[2022-01-09 06:29] LABS: Albumin Level 3.8 g/dl (3.5-5.0); Albumin/Globulin Ratio 1.1 (1.1-1.8); Alkaline Phosphatase 60 U/L (38-126); Bilirubin,Total 0.8 mg/dl (0.2-1.3); Calcium 9.7 mg/dl (8.4-10.2); Carbon Dioxide 24 mmol/L (22.0-30.0); Globulin 3.5 g/dL (1.3-3.2); Glucose 215 mg/dl (74-100); Magnesium 2.1 mg/dl (1.6-2.3); Total Protein,Serum 7.3 g/dl (6.3-8.2)
[2022-01-09 07:01] LABS: POC Glucose,Bedside 180 (70-110)
--- NOTE | 2022-01-09 07:14 | HMH.DCSUM ---
General - General Admission date:: 01/04/22 Discharge date: 01/09/22 HPI HPI: 21-year-old white male who moved into [facility] 1 year ago to live with his girlfriend and her family, who has a history of diabetes that was diagnosed when he was 16 years old. He has seen, many years ago, [facility] endocrinology per his report, but perhaps only a couple of times. He has also not been back to physicians quite a while and apparently has never been placed on insulin even though he was diagnosed with type 1 diabetes. He has a prescription bottle of metformin that was prescribed in 2019, which he has been taking intermittently. His girlfriend and her father-who are not the most precise historians and-reports that he has been feeling badly for about 4 to 5 weeks, and has had some shortness of air and has been breathing fast but he has been able to maintain his normal activities until about 4 days ago but when he became very confused and was unable to even walk around her home without being dizzy and sitting down. He became essentially unresponsive yesterday was brought to the ER. He was found to be in severe acidosis. Glucose over 500, large acetones with evidence of DKA as above. Found to have hematuria, no other source of infection was noted. Admitted to the stepdown unit after he was given fluids and insulin in the emergency department. Hospital Course Hospital Course: 21-year-old male with history of diabetes, appears to have progressed to insulin-dependent diabetes. Presented with suspected longstanding DKA over the past 2 weeks. Gap closed, tolerating transition to basal/bolus regimen. Tolerating p.o. intake. Hemodynamically stable. Problems addressed as follows: Longstanding DKA Hypokalemia -Initiated on insulin drip per protocol. Gradually had closure of his anion gap 2 days. Able to transition to basal bolus regimen including glargine and Humalog. Currently tolerating regimen of 30 units of glargine. Sliding scale has been 5 to 10 units with meals. Plan to transition to scheduled 8 units with meals for now. Further education and discussion of sliding scale once patient follows up in the outpatient setting. Has been doing diabetic teaching with nursing. Noted to fingersticks and give insulin shots. Would benefit from referral to endocrinology for further management. Islet cell antibody negative. Hepatitis and HIV still pending. A1C 11.1. Pancreatitis - etiology is possibly his DKA versus medication induced. Abdominal pain is more or less resolved. Clinically resolved. Able to advance diet. Hematuria - unclear etiology-possible malignant hypertension, resolved. HTN -Significantly elevated for some time. Echo obtained, concern for hypertrophic left ventricle structure of the outflow by mitral valve. Cardiology consult placed. Recommended transitioning to beta-blockade and calcium channel acacia. We will hold on ELIZABETH inhibitor at this time. Switched to bisoprolol and verapamil. Continue at discharge for rate and blood pressure control. Cardiology feels hypertrophy is related to longstanding hypertension, low concern for HOCM. Medically stable on day of discharge. Examined on day of discharge. Counseled on new medications and regimens. Close follow-up for further education and monitoring. Objective Vital signs: Temp Pulse Resp BP Pulse Ox 98.3 F 80 20 145/101 H 99 01/09/22 04:00 01/09/22 04:00 01/09/22 04:00 01/09/22 04:00 01/09/22 04:00 Narrative: - Constitutional mild distress, chronically ill appearing - *Routine HEENT Exam Head: Present: normocephalic Eye: Present: EOMI, PERRL ENT: Present: mucous membranes moist - *Routine Neck Exam Present: supple. Absent: lymphadenopathy - *Routine Respiratory Exam Present: rhonchi, wheezes, crackles, distant breath sounds - *Routine Cardiovascular Exam Present: RRR - *Routine Abdominal Exam Present:
[2022-01-09 08:00] VITALS: BP 168/91; PULSE 95; RESP 16; TEMP 36.8; O2SAT 99
[2022-01-09 08:42] LABS: Hemoglobin A1C 11.1 % (4.0-6.0)
--- NOTE | 2022-01-09 10:13 | HMH.CNCARD ---
History of Present Illness Consult date: 01/09/22 Requesting physician: Jose M Kimble Consult reason: hypertension Chief complaint: htn History of present illness: This is a 21-year-old white gentleman who presented to the emergency department with complaints of shortness of breath, breathing fast, fatigue and confusion. The patient reports that he moved to [facility] approximately a year ago to move in with his girlfriend and her family. He is a type I diabetic and was diagnosed at the age of [age] years old. The patient states that he was seeing endocrinology at [facility] at 1 point but has not seen anyone for his diabetes in quite some time. The patient had a prescription bottle of metformin from 2019 which she has been taking intermittently. He states that he has never been placed on insulin although he is a type I diabetic. The patient states for the last for 5 weeks he has not felt well. He has just been really tired and fatigued. Over the last 3 to 4 days prior to admission the patient states that he felt really bad. He was short of breath and felt like he was breathing fast. He was unable to do normal activities because of the shortness of breath and feeling bad. He got really confused and was unable to walk without being significantly dizzy and confused. The patient was almost unresponsive when they brought him into the emergency department. His glucose was almost 600 with large ketones. The patient was diagnosed with DKA and admitted to the hospital. He was also found to have some hematuria as well as a malignantly elevated blood pressure. He did have an echocardiogram which was abnormal and cardiology was consulted. He denies any chest pain or pressure. He states his shortness of breath has significantly improved since being treated for the DKA. He states that he is unable to get up and move around now without having much symptoms. He denies any edema. He denies any fever, chills, nausea, vomiting, diarrhea, PND or orthopnea. [facility] History I have reviewed the patient's past medical history: Yes Medical History: Reports:: Diabetes Mellitus Type 1, Hypertension *Have you ever received a pneumonia vaccine?: No *Have you received a flu vaccine this season?: Yes (fall 2020) - *Social History Smoking Status: Never smoker Alcohol Intake: never *Occupational Status:: unemployed *Travel in the last 8 weeks: None Family Hx:: Unable to obtain Meds Home Medications Medication Instructions Recorded Confirmed Type Insulin Glargine,Hum.rec.anlog 30 unit SQ HS 30 Days #3 each 01/09/22 Rx [Lantus Solostar 100 Units/mL 3mL flexpen] Insulin Lispro [Humalog Kwikpen 8 unit SQ AC 30 Days #3 each 01/09/22 Rx U-100] Verapamil HCl [Calan SR 180mg 180 mg PO DAILY 30 Days #30 tab 01/09/22 Rx tablet] bisoproloL fumarate [Bisoprolol 10 mg PO DAILY 30 Days #30 tab 01/09/22 Rx Fumarate] Allergies Allergy/AdvReac Type Severity Reaction Status Date / Time No Known Allergies Allergy Verified 01/03/22 15:05 Exam Vital signs and Labs for Last 24 Hours: Temp Pulse Resp BP Pulse Ox 98.2 F 95 H 16 168/91 H 99 01/09/22 08:00 01/09/22 08:00 01/09/22 08:00 01/09/22 08:00 01/09/22 08:00 Laboratory Results - last 24 hr 01/08/22 11:14: POC Glucose 300 H 01/08/22 16:12: POC Glucose 222 H 01/08/22 20:39: POC Glucose 203 H 01/09/22 05:50: Sodium 139, Potassium 4.0, Chloride 106, Carbon Dioxide 24, Anion Gap 13.0, BUN 14 D, Creatinine 0.90, Estimated Creat Clear 172, Estimated GFR 107, Est GFR ( Amer) 129, Glucose 215 H, Calcium 9.7, Magnesium 2.1, Total Bilirubin 0.8, AST 62 H D, ALT 69 D, Alkaline Phosphatase 60, Total Protein 7.3, Albumin 3.8 D, Globulin 3.5 H, Albumin/Globulin Ratio 1.1 01/09/22 05:50: Hemoglobin A1c 11.1 H 01/09/22 06:45: POC Glucose 180 H I & O for Last 24 hours: Intake & Output 01/06/22 01/07/22 01/08/22 01/09/22 23:59 23:59 23:59 23:59 Intake Total
[2022-01-09 11:13] LABS: POC Glucose,Bedside 246 (70-110)
[2022-01-09 12:51] LABS: Hemoglobin 14.2 g/dL (14.1-18.0)
--- NOTE | 2022-01-15 15:17 | CARE MANAGER ---
Contacted patient x3 for follow up from hospital discharge.
[2022-01-22 08:07] LABS: HIV Screen 4th Generation wRfx Non Reactive; Hep A Ab, IgM Negative; Hepatitis B Core Antibody IgM Negative; Hepatitis B Surface Antigen Negative; Hepatitis C Antibody <0.1
== END 2022-01-09 11:36 | disposition home or self-care (01) | DRG 637 ==
LOC: ER 18:24 → 2ND 19:17
PROVIDERS: Family Medicine; Internal Medicine Adolescent Medicine; Admitting Provider Internal Medicine Adolescent Medicine; Emergency Provider Emergency Medicine; PCP Nurse Practitioner Family; Visit Provider Internal Medicine Adolescent Medicine
DX: E10.10 Type 1 diabetes mellitus with ketoacidosis without coma (principal); K85.90 Acute pancreatitis without necrosis or infection, unspecified; I10 Essential (primary) hypertension; R31.9 Hematuria, unspecified; Z79.4 Long term (current) use of insulin
CPT/HCPCS: 36415; 71046; 74176; 80048; 80053; 80074; 80305; 81001; 82009; 82150; 82803; 82962; 83036; 83605; 83690; 83735; 84132; 84484; 84681; 85007; 85025; 86140; 86341; 86703; 87040; 87086; 87581; 87632; 87798; 87804; 93005; 93306; 97161; 99285; C9803; G0432; J2405; J2543; U0003; U0005

== ENCOUNTER → 2022-10-07 14:15 | Outpatient (CLI) | payer OTHER, SELFPAY ==
--- NOTE | 2022-10-07 14:24 | US_ITS ---
FINAL REPORT CLINICAL HISTORY: LOWER BACK SOFT TISSUE FINDINGS: Limited sonographic images of the lower back soft tissue were obtained. No sonographic abnormality is seen in the region of the palpable area on the left lower back. IMPRESSION: No abnormality identified. Reviewed, Interpreted and Dictated by Maicol De Leon MD Transcribed by Venessa Jackson Authenticated and [facility]
== END ==
PROVIDERS: PCP Internal Medicine Adolescent Medicine; Visit Provider Nurse Practitioner Family
DX: M79.9 Soft tissue disorder, unspecified (principal)
CPT/HCPCS: 76604

== ENCOUNTER → 2022-11-03 23:41 | Outpatient (CLI) | payer OTHER, SELFPAY ==
[2022-11-06 00:05] LABS: Neisseria gonorrhoeae, NAA Negative (Negative)
== END ==
PROVIDERS: PCP Nurse Practitioner Family; Visit Provider Nurse Practitioner Family
DX: R31.9 Hematuria, unspecified (principal); A74.9 Chlamydial infection, unspecified
CPT/HCPCS: 87086; 87491; 87591

== ENCOUNTER → 2022-11-07 15:18 | Outpatient (CLI) | payer OTHER, SELFPAY ==
[2022-11-09 18:24] LABS: HIV Screen 4th Generation wRfx Non Reactive (Non Reactive); Rapid Plasma Reagin Ab Titer Non Reactive (NonRea<1:1)
== END ==
PROVIDERS: PCP Internal Medicine Adolescent Medicine; Visit Provider Nurse Practitioner Family
DX: A74.9 Chlamydial infection, unspecified (principal)
CPT/HCPCS: 36415; 86593; 86703; G0432

== ENCOUNTER → 2022-12-01 12:53 | Outpatient (CLI) | payer OTHER, SELFPAY ==
[2022-12-02 21:08] LABS: Neisseria gonorrhoeae, NAA Negative (Negative)
== END ==
PROVIDERS: PCP Nurse Practitioner Family; Visit Provider Nurse Practitioner Family
DX: R31.9 Hematuria, unspecified (principal)
CPT/HCPCS: 87086; 87491; 87591

== ENCOUNTER 2022-12-02 08:24 | Observation (INO) | payer OTHER, SELFPAY ==
[2022-12-02] VITALS (10 sets, daily range): BP systolic 146–166; BP diastolic 86–106; PULSE 85–91; RESP 17–18; TEMP 36.8–37.2; O2SAT 94–98; BMI 35.6; BMI 36.6
[2022-12-02 08:34] LABS: Microscopic, Urine URINE MICROSCOPIC (MICROSCOPIC)
[2022-12-02 08:36] LABS: Appearance,Urine CLEAR (Clear); Bilirubin,Urine Negative (Negative); Blood, Urine TRACE-I (Negative); Color,Urine YELLOW (Yellow); Glucose,Urine (UA) 3+ (Negative); Ketones,Urine TRACE (Negative); Leukocyte Esterase,Urine Negative (Negative); Nitrate,Urine Negative (Negative); Protein,Urine 1+ (Negative); Specific Gravity, Urine >= 1.030 (1.005-1.030); Urobilinogen,Urine 0.2 EU/dl (0.2)
--- NOTE | 2022-12-02 08:51 | PC.NURSE ---
PAIGE LOGAN at
[2022-12-02 08:52] LABS: Basophils # 0.1 K/mm3 (0-0.2); Basophils % 0.4 % (0.1-2.0); Eosinophils # 0.1 K/mm3 (0.0-0.4); Eosinophils % 0.5 % (0.1-12.0); Hematocrit 46.2 % (42.0-52.0); Hemoglobin 15.7 g/dL (14.1-18.0); Lymphocytes # 1.1 K/mm3 (0.7-4.5); Lymphocytes % 9.9 % (10-50); Mean Corpuscular Hemoglobin 28.7 pg (27.0-31.2); Mean Corpuscular Volume 84.4 fl (80-94); Mean Platelet Volume 8.6 fl (7.4-10.4); Monocytes # 0.6 K/mm3 (0.1-1.0); Monocytes % 5.7 % (1.7-9.3); Neutrophils % 83.5 % (37.0-80.0); Platelet Count 329 K/mm3 (142-424); Red Blood Count 5.48 M/mm3 (4.60-6.20); Red Cell Distribution Width 13.1 % (11.5-17.5); White Blood Count 10.8 K/mm3 (4.8-10.8)
--- NOTE | 2022-12-02 08:55 | CT_ITS ---
FINAL REPORT CLINICAL HISTORY: acute periumbilical abdominal pain with vomiting COMPARISON: 01/04/2022 FINDINGS: CT OF THE ABDOMEN AND PELVIS WITH CONTRAST Axial CT images of the abdomen and pelvis were obtained after the administration of IV contrast. Coronal reformatted images were also obtained and reviewed.This study was performed with techniques to keep radiation doses as low as reasonably achievable (ALARA). Individualized dose reduction techniques using automated exposure control or adjustment of mA and/or kV according to the patient''s size were employed. Abdomen: The lung bases are clear. The heart is normal in size. There is fatty infiltration of the liver. The gallbladder is present. The spleen is unremarkable. No adrenal mass is present. The pancreas has an unremarkable appearance. The kidneys are normal, without evidence of mass or hydronephrosis. The aorta is normal in caliber. There are multiple air and fluid-filled moderately distended small bowel loops. There is fluid in the small bowel mesentery. There is fluid in the ascending colon. Pelvis: There is wall thickening of the terminal ileum. The appendix is normal The urinary bladder is unremarkable. There is no evidence of mass or adenopathy. There is a small amount of fluid in the pelvis. IMPRESSION: Abnormal appearance to the bowel with wall thickening of the terminal ileum may represent inflammatory bowel disease or infectious enteritis with probable partial small bowel obstruction. Follow-up CT may be helpful. Reviewed, Interpreted and Dictated by Marcus Perez III, MD Transcribed by Yamini Wu Authenticated and [facility]
--- NOTE | 2022-12-02 08:57 | HMH.EDABDPAI ---
Discharge Plan Disposition Patient Disposition: Admitted as Observation Condition: Good Clinical Impressions Clinical Impression: Gastroenteritis, Hyperglycemia, Type 1 diabetes, Bowel obstruction Discharge ED Provider: Libertad Martinez Abdominal Pain HPI General Chief Complaint: Abdominal Pain Stated Complaint: upper stomach pain, vomiting Time Seen by Provider: 12/02/22 08:47 Mode of Arrival: Ambulatory Limitations: No Limitations Description of Symptoms (Recalled from ER Triage Doc. by RN): PT C/O DIARRHEA THAT BEGAN YESTERDAY, UPPER ABDOMINAL CRAMPING AND VOMITING THAT BEGAN LAST NIGHT. PT IS TYPE 1 DIABETIC, REPORTS GLUCOSE AROUND 200. History of Present Illness HPI narrative: Patient is a 22 year old male, presented to ER with c/o: Abdominal pain, nausea, vomiting, diarrhea since yesterday, getting worse. Patient states abdominal pain is in periumbilical area, he had about 5-6 bowel movements yesterday, greenish color, denies GI bleeding. States pain and nausea are increasing after meals, and upon body movements, moderate pain, states he is able to keep fluids, but not food. Related Data Home Medications Medication Instructions Recorded Confirmed insulin glargine 100 unit/mL (3 35 unit SQ HS Diabetes 11/03/22 12/02/22 mL) subcutaneous pen insulin lispro 100 unit/mL 8 unit SQ AC Diabetes 11/03/22 12/02/22 subcutaneous pen verapamil 180 mg tablet,extended 180 mg PO DAILY High blood pressure 11/03/22 12/02/22 release bisoprolol fumarate 10 mg tablet 10 mg PO DAILY High blood pressure 12/02/22 12/02/22 cod liver oil 1 cap PO DAILY Supplement 12/02/22 12/02/22 Allergies Allergy/AdvReac Type Severity Reaction Status Date / Time No Known Allergies Allergy Verified 11/03/22 10:58 [facility] Disclaimer: The information contained in this section may have been updated after the patient was seen, as this information can be updated by other users. Medical History Acute inflammation of the pancreas Chlamydia COVID-19 Elevated blood pressure reading Hematuria Urinary tract infection Viral syndrome Surgical History History of eye surgery Family History Mother Diabetes Social History Smoking Status: Never smoker alcohol intake: never substance use type: denies use current occupational status: employed Travel in the last 8 weeks: None ROS Obtained: Yes Systems reviewed as appropriate & no additional complaints except as documented Constitutional Constitutional: Reports system reviewed and no additional complaints, except as documented ENT Ears, Nose, Mouth, and Throat: Reports system reviewed and no additional complaints, except as documented Cardiovascular Cardiovascular: Reports system reviewed and no additional complaints, except as documented Respiratory Respiratory: Reports system reviewed and no additional complaints, except as documented Gastrointestinal Gastrointestingal: Reports abdominal pain, diarrhea, nausea and vomiting Genitourinary Male Genitourinary: Reports system reviewed and no additional complaints, except as documented Neurologic Neurologic: Reports system reviewed and no additional complaints, except as documented Physical Exam General General appearance: alert and in no apparent distress Head Head exam: atraumatic and normocephalic Eye Eye exam: Absent scleral icterus ENT ENT exam: Present normal oropharynx Neck Neck exam: Present full ROM Respiratory Respiratory exam: Present normal lung sounds bilaterally Cardiovascular Cardiovascular exam: Present regular rate and normal rhythm Abdominal Exam Abdominal exam: Present soft, distention and tenderness; Absent guarding or rebound Abdominal tenderness: Present epigastrium, diffuse and moderate Comment: periumbi
[2022-12-02 09:00] LABS: Alanine Aminotransferase 77 U/L (12-78); Albumin Level 4.8 g/dl (3.5-5.0); Albumin/Globulin Ratio 1.4 (1.1-1.8); Alkaline Phosphatase 78 U/L (38-126); Anion Gap 22.3 mEq/L (5-15); Aspartate Amino Transferase 42 U/L (17-59); Bilirubin,Total 0.9 mg/dl (0.2-1.3); Blood Urea Nitrogen 14 mg/dl (9-20); Calcium 9.7 mg/dl (8.4-10.2); Carbon Dioxide 24 mmol/L (22.0-30.0); Chloride 94 mmol/L (98-107); Creatinine Clearance Estimated 212 mL/min (50-200); Estimated Glomerular Filt Rate 121 ml/min (>60); GFR (African American) 146 ML/MIN (>60); Globulin 3.4 g/dL (1.3-3.2); Glucose 268 mg/dl (74-100); Lipase 35 U/L (23-300); Potassium 4.3 mmoL/L (3.5-5.1); Sodium 136 mmol/L (136-145); Total Protein,Serum 8.2 g/dl (6.3-8.2)
[2022-12-02 09:13] LABS: Bacteria,Urine 2+ /lpf; RBC,Urine Occasional #/hpf (0-3); Squamous Epithelial Cell,Urine Occasional #/hpf (0-5); WBC,Urine Occasional #/hpf (0-3)
--- NOTE | 2022-12-02 09:13 | PC.NURSE ---
rad notified of CT order
--- NOTE | 2022-12-02 09:14 | PC.NURSE ---
K.Brown is rounding on pt
--- NOTE | 2022-12-02 09:23 | PC.NURSE ---
notified lab of new orders on pt notified RT of abg order
--- NOTE | 2022-12-02 09:29 | XR_ITS ---
FINAL REPORT CLINICAL HISTORY: chest pain COMPARISON: 01/03/2022 FINDINGS: SINGLE-VIEW CHEST The heart size is normal. The mediastinum is normal. The lungs are clear. There is no pneumothorax. IMPRESSION: No acute cardiopulmonary process. Reviewed, Interpreted and Dictated by Marcus Perez III, MD Transcribed by Venessa Jackson Authenticated and [facility]
--- NOTE | 2022-12-02 09:34 | PC.NURSE ---
PT TO CT
[2022-12-02 09:37] LABS: ABG Base Excess -3.1 mmol/L (-2.4-2.3); ABG HCO3 21.5 mmhg (22.0-26.0); ABG Oxygen Saturation 97 % (90-100); ABG PCO2 34.9 mmhg (35.0-45.0); ABG PH 7.41 mmol/L (7.35-7.45); ABG PO2 87.2 mmhg (80-100); ABG TCO2 22.6 mmhg (23-27)
[2022-12-02 09:41] LABS: Allen's Test Acceptable; Oxygen Room Air %; Source Right Radial
--- NOTE | 2022-12-02 09:44 | PC.NURSE ---
pt return from CT
--- NOTE | 2022-12-02 10:01 | PC.NURSE ---
Ambulatory to restroom without complications
[2022-12-02 10:03] LABS: Acetone, Serum (Rapid) None Detected (None Detect)
--- NOTE | 2022-12-02 10:11 | PC.NURSE ---
rounded on pt unkooked so he could use the restroom no complaints tap basilio at bedside
[2022-12-02 10:19] LABS: POC Glucose,Bedside 280 (70-110)
--- NOTE | 2022-12-02 10:29 | PC.NURSE ---
PAIGE LOGAN speaking with Dr. Soto
--- NOTE | 2022-12-02 10:33 | PC.NURSE ---
notified care management of admission
[2022-12-02 10:34] LABS: Coronavirus 19, PCR Not Detected (NotDetected); Influenza A, PCR Not Detected (NotDetected); Influenza B, PCR Not Detected (NotDetected)
--- NOTE | 2022-12-02 11:07 | PC.NURSE ---
checked on pt he is sleeping in bed, tap basilio at bedside
--- NOTE | 2022-12-02 11:09 | PC.NURSE ---
Paged Dr. Sharpe for ER MD
--- NOTE | 2022-12-02 11:32 | PC.NURSE ---
Verified w/Margarita Conteh RN that PAIGE LOGAN wanted 1 dose of flagyl given and zosyn q8hrs
--- NOTE | 2022-12-02 11:47 | HMH.PHAINT1 ---
Pharmacy Intervention Comments: HOME MEDICATIONS VERIFIED THROUGH LIST FROM PCP OFFICE.
--- NOTE | 2022-12-02 11:54 | EXP.SURG.CON ---
History of Present Illness *Admission Date: 12/02/22 *Reason for visit:: Abdominal pain; abnormal CT scan of abdomen/pelvis *History of present illness: This is a 22-year-old gentleman who presented to the emergency department earlier today with increasing abdominal pain and diarrhea. He also had 1 episode of fairly significant nausea with emesis. Please see HPI from emergency department evaluation forwarded below. Forwarded from emergency department evaluation: General Chief Complaint: Abdominal Pain Stated Complaint: upper stomach pain, vomiting Time Seen by Provider: 12/02/22 08:47 Mode of Arrival: Ambulatory Limitations: No Limitations Description of Symptoms (Recalled from ER Triage Doc. by RN): PT C/O DIARRHEA THAT BEGAN YESTERDAY, UPPER ABDOMINAL CRAMPING AND VOMITING THAT BEGAN LAST NIGHT. PT IS TYPE 1 DIABETIC, REPORTS GLUCOSE AROUND 200. History of Present Illness HPI narrative: Patient is a 22 year old male, presented to ER with c/o: Abdominal pain, nausea, vomiting, diarrhea since yesterday, getting worse.? Patient states abdominal pain is in periumbilical area, he had about 5-6 bowel movements yesterday, greenish color, denies GI bleeding.? States pain and nausea are increasing after meals, and upon body movements, moderate pain, states he is able to keep fluids, but not food. [facility] Disclaimer: The information contained in this section may have been updated after the patient was seen, as this information can be updated by other users. Medical History (Updated 12/02/22 @ 11:59 by Harshil Reese MD) Acute inflammation of the pancreas Chlamydia COVID-19 Elevated blood pressure reading Hematuria Urinary tract infection Viral syndrome Surgical History (Updated 11/03/22 @ 11:00 by Leslee Yoder LPN) History of eye surgery Family History (Updated 11/03/22 @ 11:01 by Leslee Yoder LPN) Diabetes Mother Social History (Updated 11/03/22 @ 11:01 by Leslee Yoder LPN) Smoking Status: Never smoker alcohol intake: never substance use type: denies use current occupational status: employed Travel in the last 8 weeks: None Review of Systems *Neurologic Neurologic: Reports system reviewed and no additional complaints, except as documented Meds Home Medications and Allergies Home Medications Medication Instructions Recorded Confirmed Type insulin glargine 100 unit/mL (3 35 unit SQ HS Diabetes 11/03/22 12/02/22 History mL) subcutaneous pen insulin lispro 100 unit/mL 8 unit SQ AC Diabetes 11/03/22 12/02/22 History subcutaneous pen verapamil 180 mg tablet,extended 180 mg PO DAILY High blood pressure 11/03/22 12/02/22 History release bisoprolol fumarate 10 mg tablet 10 mg PO DAILY High blood pressure 12/02/22 12/02/22 History New Prescriptions to Start Prescriptions: Allergies Allergy/AdvReac Type Severity Reaction Status Date / Time No Known Allergies Allergy Verified 11/03/22 10:58 Exam (Inpt) Vital signs and Labs for Last 24 Hours: Temp Pulse Resp BP Pulse Ox 98.9 F 91 H 17 157/93 H 96 12/02/22 11:21 12/02/22 11:21 12/02/22 11:21 12/02/22 11:21 12/02/22 11:21 Laboratory Results - last 24 hr 12/02/22 08:27: Urine Color Yellow, Urine Appearance Clear, Urine pH 6.0, Ur Specific [place] >= 1.030, Urine Protein 1+, Urine Glucose (UA) 3+, Urine Ketones Trace, Urine Blood Trace-i, Urine Nitrate Negative, Urine Bilirubin Negative, Urine Urobilinogen 0.2, Ur Leukocyte Esterase Negative, Urine RBC Occasional, Urine WBC Occasional, Ur Squamous Epith Cells Occasional, Urine Bacteria 2+ 12/02/22 08:35: WBC 10.8, RBC 5.48, Hgb 15.7, Hct 46.2, MCV 84.4, MCH 28.7, MCHC 34.0, RDW 13.1, Plt Count 329, MPV 8.6, Neut % (Auto) 83.5 H, Lymph % (Auto) 9.9 L, [place] % (Auto) 5.7, Eos % (Auto) 0.5, Baso % (Auto) 0.4, Neut #
[2022-12-02 12:38] LABS: POC Glucose,Bedside 267 (70-110)
[2022-12-02 16:49] LABS: POC Glucose,Bedside 223 (70-110)
--- NOTE | 2022-12-02 18:49 | PC.NURSE ---
pt is a&ox4. independently ambulates. RA. in room. pt has remained in bed, except to get up to the bathroom. on a clear liquid diet with no carbonation as tolerated. BS 223 at 1645. 20g RFA. bed in lowest position and call light is within reach.
[2022-12-02 23:14] LABS: POC Glucose,Bedside 211 (70-110)
[2022-12-03 04:00] VITALS: BP 153/74; PULSE 96; RESP 18; TEMP 36.8; O2SAT 97; BMI 36.3
[2022-12-03 04:40] LABS: POC Glucose,Bedside 187 (70-110)
--- NOTE | 2022-12-03 04:51 | PC.NURSE ---
Pt. is aox4 with family present in the room. C/O some abd pain after eating some broth last night and got an order for GI cocktail which alleviated his symptoms. No other changes noted.
[2022-12-03 07:24] VITALS: BP 141/79; PULSE 94; RESP 16; TEMP 37.1; O2SAT 97
--- NOTE | 2022-12-03 07:38 | EXP.SURG.PN ---
Subjective Patient reports: feels better Narrative: The patient states that he is continuing to have bowel movements and that they are getting more normal . He is hopeful that he will be discharged today. Exam Data for Last 24 hours Vital signs and Labs for Last 24 Hours: Temp Pulse Resp BP Pulse Ox 98.8 F 94 H 16 141/79 H 97 12/03/22 07:24 12/03/22 07:24 12/03/22 07:24 12/03/22 07:24 12/03/22 07:24 Laboratory Results - last 24 hr 12/02/22 08:27: Urine Color Yellow, Urine Appearance Clear, Urine pH 6.0, Ur Specific [place] >= 1.030, Urine Protein 1+, Urine Glucose (UA) 3+, Urine Ketones Trace, Urine Blood Trace-i, Urine Nitrate Negative, Urine Bilirubin Negative, Urine Urobilinogen 0.2, Ur Leukocyte Esterase Negative, Urine RBC Occasional, Urine WBC Occasional, Ur Squamous Epith Cells Occasional, Urine Bacteria 2+ 12/02/22 08:35: WBC 10.8, RBC 5.48, Hgb 15.7, Hct 46.2, MCV 84.4, MCH 28.7, MCHC 34.0, RDW 13.1, Plt Count 329, MPV 8.6, Neut % (Auto) 83.5 H, Lymph % (Auto) 9.9 L, [place] % (Auto) 5.7, Eos % (Auto) 0.5, Baso % (Auto) 0.4, Neut # (Auto) 9.0 H, Lymph # (Auto) 1.1, [place] # (Auto) 0.6, Eos # (Auto) 0.1, Baso # (Auto) 0.1 12/02/22 08:35: Sodium 136, Potassium 4.3, Chloride 94 L, Carbon Dioxide 24, Anion Gap 22.3 H, BUN 14, Creatinine 0.80, Estimated Creat Clear 212, Estimated GFR 121, Est GFR ( Amer) 146, Glucose 268 H, Calcium 9.7, Total Bilirubin 0.9, AST 42, ALT 77, Alkaline Phosphatase 78, Total Protein 8.2, Albumin 4.8, Globulin 3.4 H, Albumin/Globulin Ratio 1.4, Lipase 35 12/02/22 08:35: Acetone Level None detected 12/02/22 09:28: Specimen Source Right radial, O2 % Room air, ABG pH 7.41, ABG pCO2 34.9 L, ABG pO2 87.2, ABG HCO3 21.5 L, ABG Total CO2 22.6 L, ABG O2 Saturation 97, ABG Base Excess -3.1 L, Philip Test Acceptable 12/02/22 10:13: POC Glucose 280 H 12/02/22 10:30: SARS-CoV-2 (PCR) Not detected, Influenza A Untype (PCR) Not detected, Influenza Type B (PCR) Not detected 12/02/22 12:22: POC Glucose 267 H 12/02/22 16:41: POC Glucose 223 H 12/02/22 23:07: POC Glucose 211 H 12/03/22 04:32: POC Glucose 187 H I & O for Last 24 hours: Intake & Output 11/30/22 12/01/22 12/02/22 12/03/22 11:59 11:59 11:59 11:59 Intake Total 220 / 220 Output Total 0 / 0 Balance 220 / 220 Weight 234 lb 3 oz 231 lb 5 oz Constitutional Constitutional: no acute distress *Routine Respiratory Exam Respiratory: Absent respiratory distress *Routine Cardiovascular Exam Cardiovascular: Absent tachycardia *Routine Abdominal Exam Abdominal: Present soft; Absent tenderness Progress Note: A&P Assessment and plan (1) Abnormal CT scan, gastrointestinal tract: Problem details: Possible inflammatory bowel disease; however, the patient's presenting symptomatology is more consistent with infectious enteritis. Small bowel dilatation likely secondary to inflammatory changes as opposed to mechanical obstruction. Status: Acute Assessment and plan: The patient's abdominal pain has essentially dissipated. He states that he has significantly improved. His bowel movements are normalizing and he is hopeful that he will be discharged. OK from surgical standpoint for discharge home with close primary care follow-up. He may ultimately benefit from gastroenterology consultation if there are concerns for inflammatory bowel disease or if he develops recurrent symptomatology. (2) Gastroenteritis: Status: Acute (3) Diarrhea: Status: Acute Assessment and plan: Resolving (4) Nausea and vomiting: Status: Acute Assessment and plan: Currently resolved
--- NOTE | 2022-12-03 07:45 | EXP.DC.SUM ---
General Admission date:: 12/02/22 Discharge date: 12/03/22 HPI HPI HPI: This is a 22-year-old gentleman who presented to the emergency department earlier today with increasing abdominal pain and diarrhea. He also had 1 episode of fairly significant nausea with emesis. Please see HPI from emergency department evaluation forwarded below. Forwarded from emergency department evaluation: General Chief Complaint: Abdominal Pain Stated Complaint: upper stomach pain, vomiting Time Seen by Provider: 12/02/22 08:47 Mode of Arrival: Ambulatory Limitations: No Limitations Description of Symptoms (Recalled from ER Triage Doc. by RN): PT C/O DIARRHEA THAT BEGAN YESTERDAY, UPPER ABDOMINAL CRAMPING AND VOMITING THAT BEGAN LAST NIGHT. PT IS TYPE 1 DIABETIC, REPORTS GLUCOSE AROUND 200. History of Present Illness HPI narrative: Patient is a 22 year old male, presented to ER with c/o: Abdominal pain, nausea, vomiting, diarrhea since yesterday, getting worse.? Patient states abdominal pain is in periumbilical area, he had about 5-6 bowel movements yesterday, greenish color, denies GI bleeding.? States pain and nausea are increasing after meals, and upon body movements, moderate pain, states he is able to keep fluids, but not food. Hospital Course Hospital Course Hospital Course: Patient was admitted, given IV fluids. CT scan showed evidence of enteritis. Surgical consult was obtained by the ER, and recommended nonoperative management which I agree with. Overnight the patient did well with clear liquids. This morning is feeling much better, no vomiting or diarrhea. A little bit of abdominal complaints. Plan we did discharge home, we will order probiotic and ondansetron for enteritis. We will have him follow-up in the office in the next 1 or 2 weeks for reevaluation. Sick day instructions for insulin administration were given. Exam Data for Last 24 hours Vital signs and Labs for Last 24 Hours: Temp Pulse Resp BP Pulse Ox 98.8 F 94 H 16 141/79 H 97 12/03/22 07:24 12/03/22 07:24 12/03/22 07:24 12/03/22 07:24 12/03/22 07:24 Laboratory Results - last 24 hr 12/02/22 08:27: Urine Color Yellow, Urine Appearance Clear, Urine pH 6.0, Ur Specific [place] >= 1.030, Urine Protein 1+, Urine Glucose (UA) 3+, Urine Ketones Trace, Urine Blood Trace-i, Urine Nitrate Negative, Urine Bilirubin Negative, Urine Urobilinogen 0.2, Ur Leukocyte Esterase Negative, Urine RBC Occasional, Urine WBC Occasional, Ur Squamous Epith Cells Occasional, Urine Bacteria 2+ 12/02/22 08:35: WBC 10.8, RBC 5.48, Hgb 15.7, Hct 46.2, MCV 84.4, MCH 28.7, MCHC 34.0, RDW 13.1, Plt Count 329, MPV 8.6, Neut % (Auto) 83.5 H, Lymph % (Auto) 9.9 L, Gem % (Auto) 5.7, Eos % (Auto) 0.5, Baso % (Auto) 0.4, Neut # (Auto) 9.0 H, Lymph # (Auto) 1.1, Gem # (Auto) 0.6, Eos # (Auto) 0.1, Baso # (Auto) 0.1 12/02/22 08:35: Sodium 136, Potassium 4.3, Chloride 94 L, Carbon Dioxide 24, Anion Gap 22.3 H, BUN 14, Creatinine 0.80, Estimated Creat Clear 212, Estimated GFR 121, Est GFR ( Amer) 146, Glucose 268 H, Calcium 9.7, Total Bilirubin 0.9, AST 42, ALT 77, Alkaline Phosphatase 78, Total Protein 8.2, Albumin 4.8, Globulin 3.4 H, Albumin/Globulin Ratio 1.4, Lipase 35 12/02/22 08:35: Acetone Level None detected 12/02/22 09:28: Specimen Source Right radial, O2 % Room air, ABG pH 7.41, ABG pCO2 34.9 L, ABG pO2 87.2, ABG HCO3 21.5 L, ABG Total CO2 22.6 L, ABG O2 Saturation 97, ABG Base Excess -3.1 L, Philip Test Acceptable 12/02/22 10:13: POC Glucose 280 H 12/02/22 10:30: SARS-CoV-2 (PCR) Not detected, Influenza A Untype (PCR) Not detected, Influenza Type B (PCR) Not detected 12/02/22 12:22: POC Glucose 267 H 12/02/22 16:41: POC Glucose 223 H 12/02/22 23:07: POC Glucose 211 H 12/03/22 04:32: POC Glucose 187 H I & O for Last 24 hours: Intake & Output 11/30/22
--- NOTE | 2022-12-03 07:51 | EXP.HP ---
History of Present Illness *Admission Date: 12/02/22 *Reason for visit:: Gi pain *History of present illness: This is a 22-year-old gentleman who presented to the emergency department earlier today with increasing abdominal pain and diarrhea. He also had 1 episode of fairly significant nausea with emesis. Please see HPI from emergency department evaluation forwarded below. Forwarded from emergency department evaluation: General Chief Complaint: Abdominal Pain Stated Complaint: upper stomach pain, vomiting Time Seen by Provider: 12/02/22 08:47 Mode of Arrival: Ambulatory Limitations: No Limitations Description of Symptoms (Recalled from ER Triage Doc. by RN): PT C/O DIARRHEA THAT BEGAN YESTERDAY, UPPER ABDOMINAL CRAMPING AND VOMITING THAT BEGAN LAST NIGHT. PT IS TYPE 1 DIABETIC, REPORTS GLUCOSE AROUND 200. History of Present Illness HPI narrative: Patient is a 22 year old male, presented to ER with c/o: Abdominal pain, nausea, vomiting, diarrhea since yesterday, getting worse.? Patient states abdominal pain is in periumbilical area, he had about 5-6 bowel movements yesterday, greenish color, denies GI bleeding.? States pain and nausea are increasing after meals, and upon body movements, moderate pain, states he is able to keep fluids, but not food. PFS PFS Disclaimer: The information contained in this section may have been updated after the patient was seen, as this information can be updated by other users. Medical History Acute inflammation of the pancreas Chlamydia COVID-19 Elevated blood pressure reading Hematuria Urinary tract infection Viral syndrome Surgical History History of eye surgery Family History Diabetes Mother Social History Smoking Status: Never smoker alcohol intake: never substance use type: denies use current occupational status: employed Travel in the last 8 weeks: None Review of Systems Review of Systems Review of systems:: pertinent systems reviewed and negative unless documented below *Neurologic Neurologic: Reports system reviewed and no additional complaints, except as documented Meds Home Medications and Allergies Home Medications Medication Instructions Recorded Confirmed Type insulin glargine 100 unit/mL (3 35 unit SQ HS Diabetes 11/03/22 12/02/22 History mL) subcutaneous pen insulin lispro 100 unit/mL 8 unit SQ AC Diabetes 11/03/22 12/02/22 History subcutaneous pen verapamil 180 mg tablet,extended 180 mg PO DAILY High blood pressure 11/03/22 12/02/22 History release bisoprolol fumarate 10 mg tablet 10 mg PO DAILY High blood pressure 12/02/22 12/02/22 History cod liver oil 1 cap PO DAILY Supplement 12/02/22 12/02/22 History Bifidobacterium infantis 4 mg 4 mg PO DAILY #30 caps 12/03/22 Rx capsule (Align) ondansetron 4 mg disintegrating 4 mg PO Q8H PRN nausea and 12/03/22 Rx tablet vomiting #10 tabs New Prescriptions to Start Prescriptions: Bifidobacterium infantis [Align] Rico Soto ondansetron Rico Soto Allergies Allergy/AdvReac Type Severity Reaction Status Date / Time No Known Allergies Allergy Verified 11/03/22 10:58 Exam Data for Last 24 hours Vital signs and Labs for Last 24 Hours: Temp Pulse Resp BP Pulse Ox 98.8 F 94 H 16 141/79 H 97 12/03/22 07:24 12/03/22 07:24 12/03/22 07:24 12/03/22 07:24 12/03/22 07:24 Laboratory Results - last 24 hr 12/02/22 08:27: Urine Color Yellow, Urine Appearance Clear, Urine pH 6.0, Ur Specific [place] >= 1.030, Urine Protein 1+, Urine Glucose (UA) 3+, Urine Ketones Trace, Urine Blood Trace-i, U
--- NOTE | 2022-12-03 08:10 | PC.NURSE ---
pt to schedule own appt's.
--- NOTE | 2022-12-08 15:22 | CARE MANAGER ---
CM not able to reach patient via phone to discuss recent discharge.
== END 2022-12-03 08:36 | disposition home or self-care (01) ==
LOC: ER 10:46 → 2ND 10:50
PROVIDERS: Admitting Provider Internal Medicine Adolescent Medicine; Emergency Provider Emergency Medicine; PCP Internal Medicine Adolescent Medicine; Visit Provider Internal Medicine Adolescent Medicine
DX: K52.9 Noninfective gastroenteritis and colitis, unspecified (principal); E10.65 Type 1 diabetes mellitus with hyperglycemia; Z79.4 Long term (current) use of insulin; A09 Infectious gastroenteritis and colitis, unspecified
CPT/HCPCS: 71045; 74177; 80053; 81001; 82009; 82803; 82962; 83690; 85025; 87635; 87636; 99285; C9803; G0378; J2405; J2543; Q9967; U0003; U0005

== ENCOUNTER 2023-01-13 20:38 | Emergency (ER) | payer OTHER, SELFPAY ==
[2023-01-13 20:39] VITALS: BP 170/100; PULSE 81; RESP 17; TEMP 36.5; O2SAT 98; BMI 36.1
[2023-01-13 20:54] LABS: POC Glucose,Bedside 256 (70-110)
[2023-01-13 20:59] VITALS: BMI 36.1
[2023-01-13 21:05] LABS: Basophils # 0.1 K/mm3 (0-0.2); Eosinophils % 0.7 % (0.1-12.0); Hematocrit 44.9 % (42.0-52.0); Hemoglobin 15.2 g/dL (14.1-18.0); Lymphocytes # 1.6 K/mm3 (0.7-4.5); Lymphocytes % 27.2 % (10-50); Mean Corpuscular HGB Conc 33.8 g/dL (31.8-35.4); Mean Corpuscular Hemoglobin 28.3 pg (27.0-31.2); Mean Corpuscular Volume 83.8 fl (80-94); Mean Platelet Volume 8.1 fl (7.4-10.4); Monocytes # 0.5 K/mm3 (0.1-1.0); Monocytes % 7.8 % (1.7-9.3); Neutrophils # 3.7 K/mm3 (1.8-7.8); Neutrophils % 63.4 % (37.0-80.0); Platelet Count 260 K/mm3 (142-424); Red Blood Count 5.36 M/mm3 (4.60-6.20); Red Cell Distribution Width 13.1 % (11.5-17.5); White Blood Count 5.8 K/mm3 (4.8-10.8)
[2023-01-13 21:11] LABS: Alanine Aminotransferase 72 U/L (12-78); Albumin Level 4.8 g/dl (3.5-5.0); Albumin/Globulin Ratio 1.3 (1.1-1.8); Alkaline Phosphatase 82 U/L (38-126); Anion Gap 17.9 mEq/L (5-15); Aspartate Amino Transferase 56 U/L (17-59); Bilirubin,Total 0.6 mg/dl (0.2-1.3); Blood Urea Nitrogen 9 mg/dl (9-20); Calcium 9.3 mg/dl (8.4-10.2); Carbon Dioxide 27 mmol/L (22.0-30.0); Chloride 97 mmol/L (98-107); Creatinine Clearance Estimated 185 mL/min (50-200); Estimated Glomerular Filt Rate 106 ml/min (>60); GFR (African American) 128 ML/MIN (>60); Globulin 3.7 g/dL (1.3-3.2); Glucose 267 mg/dl (74-100); Potassium 3.9 mmoL/L (3.5-5.1); Sodium 138 mmol/L (136-145); Total Protein,Serum 8.5 g/dl (6.3-8.2)
[2023-01-13 21:16] LABS: Acetone, Serum (Rapid) None Detected (None Detect)
[2023-01-13 21:40] LABS: Microscopic, Urine URINE MICROSCOPIC (MICROSCOPIC)
[2023-01-13 21:43] LABS: Appearance,Urine CLEAR (Clear); Bilirubin,Urine Negative (Negative); Blood, Urine TRACE-I (Negative); Color,Urine STRAW (Yellow); Glucose,Urine (UA) 3+ (Negative); Ketones,Urine Negative (Negative); Leukocyte Esterase,Urine Negative (Negative); Nitrate,Urine Negative (Negative); Protein,Urine Negative (Negative); Specific Gravity, Urine <= 1.005 (1.005-1.030); Urobilinogen,Urine 0.2 EU/dl (0.2)
[2023-01-13 22:01] LABS: RBC,Urine Occasional #/hpf (0-3)
--- NOTE | 2023-01-13 22:25 | HMH.EDGENADL ---
Discharge Plan Disposition Patient Disposition: Home, Self-Care Chief Complaint: Hyper/Hypoglycemia Prescriptions Prescriptions: No Action insulin glargine 100 unit/mL (3 mL) insulin pen 35 unit SQ HS verapamil 180 mg tablet extended release 180 mg PO DAILY insulin lispro 100 unit/mL insulin pen 8 unit SQ AC Rx Instructions: 6units qam, 8units at lunch 10 units with evening meal bisoprolol fumarate 10 MG tablet 10 mg PO DAILY cod liver oil Capsule 1 cap PO DAILY Align 4 mg capsule 4 mg PO DAILY Qty: 30 0RF Referrals Follow up/Referrals: Rico Winn MD [Primary Care Provider] - See instructions Clinical Impressions Clinical Impression: Type 1 diabetes Instructions Patient Instructions: DI for Hyperglycemia -- Adult Discharge ED Provider: Vida (ED)García General Adult HPI General Chief complaint: Hyper/Hypoglycemia Stated complaint: high sugar count Time Seen by Provider: 01/13/23 22:00 Mode of Arrival: Family Vehicle Source of Information: Patient and Medical Record Limitations: No Limitations Description of Symptoms (Recalled from ER Triage Doc. by RN): Pt c/o elevated blood sugar of 335 tonight. He typically takes Lantus 35units HS & Humalog with meals. He reports when he picked up his generic Humalog that it doesn't work as well as the real thing so I have to use more of it and ran out early. States he can't get a Humalog refill until next month. Denies any recent illness, steriod use, fever, cough, or SOA. Denies any headache or pain. History of Present Illness HPI narrative: pt with elevated glucose tonight - has been out of humalog - has appt - no vomiting or fever Onset (ago): hour(s) Severity: moderate Related Data Home Medications Medication Instructions Recorded Confirmed insulin glargine 100 unit/mL (3 35 unit SQ HS Diabetes 11/03/22 12/25/22 mL) subcutaneous pen verapamil 180 mg tablet,extended 180 mg PO DAILY High blood pressure 11/03/22 12/25/22 release bisoprolol fumarate 10 mg tablet 10 mg PO DAILY High blood pressure 12/02/22 12/25/22 cod liver oil 1 cap PO DAILY Supplement 12/02/22 12/25/22 insulin lispro 100 unit/mL 8 unit SQ AC Diabetes 12/25/22 12/25/22 subcutaneous pen Previous Rx's Medication Instructions Recorded Bifidobacterium infantis 4 mg 4 mg PO DAILY #30 caps 12/03/22 capsule (Align) Allergies Allergy/AdvReac Type Severity Reaction Status Date / Time No Known Allergies Allergy Verified 12/25/22 14:55 [facility] Disclaimer: The information contained in this section may have been updated after the patient was seen, as this information can be updated by other users. Medical History Acute inflammation of the pancreas Chlamydia COVID-19 Elevated blood pressure reading Hematuria Urinary tract infection Viral syndrome Surgical History History of eye surgery Family History Mother Diabetes type 1 diabetic Social History Smoking Status: Never smoker alcohol intake: never substance use type: denies use current occupational status: employed Travel in the last 8 weeks: None ROS Obtained: Yes All systems reviewed & no additional complaints except as documented Physical Exam General General appearance: alert Head Head exam: normocephalic Eye Eye exam: Present PERRL and EOMI ENT ENT exam: Present mucous membranes moist Neck Neck exam: Present trachea midline Respiratory Respiratory exam: Present normal lung sounds bilaterally; Absent respiratory distress Cardiovascular Cardiovascular exam: Present regular rate Abdominal Exam Abdominal exam: Present soft Extremities Exam Extremities exam: Present full ROM Neuro
[2023-01-13 22:31] VITALS: BP 158/92; PULSE 79; RESP 16; TEMP 36.7; O2SAT 98
== END 2023-01-13 22:53 | disposition home or self-care (01) ==
PROVIDERS: Emergency Provider Emergency Medicine; PCP Family Medicine
DX: E10.65 Type 1 diabetes mellitus with hyperglycemia (principal)
CPT/HCPCS: 80053; 81001; 82009; 82962; 85025; 96361; 96374; 99284; 99285